=== PATIENT | female | born 1995 | race Caucasian/White ===

== ENCOUNTER 2016-05-15 10:37 | Inpatient (IN) | payer OTHER ==
[~2016-05-15] VITALS: Ht 170.2 cm; Wt 65.5 kg
[2016-05-15] MEDS ORDERED: SODIUM CHLORIDE 0.9% 500ML 500 ML IV STA (10:49)
[2016-05-15] MEDS ORDERED: ONDANSETRON INJ 2 MG/ML 2 ML VIAL IV STA (10:49)
[2016-05-15] MEDS ORDERED: SODIUM CHLORIDE 0.9% 1000ML 1,000 ML IV STA (10:49)
[2016-05-15] MEDS ORDERED: MoRPHine SULFATE 4 MG/ML 1 ML CARP\\VIAL IV PRN (11:00)
--- NOTE | 2016-05-15 11:10 | EMERGENCY ROOM VISIT NOTE ---
History Report prepared by [place]: Miriam Pittman Under the Supervision of: Dr. Shelton Esparza M.D. First contact with patient: 10:48 Chief Complaint: ABDOMINAL PAIN Stated Complaint: ABD. PAIN History of Present Illness The patient is a 20 year old female who presents to the Emergency Room with complaints of constant central abdominal pain that started about one week ago. She rates her discomfort as a 5-6/10 in severity, but she states that intermittently the pain is more severe and she rates her discomfort as an 8/10 at those times. The pain is occasionally worse with quick movements, but otherwise nothing makes the pain worse. She has not noticed any correlation between the pain and eating. The pain does not radiate into her back, but sometimes the pain radiates into the right upper quadrant of her abdomen. The patient is also experiencing intermittent nausea, but denies fevers, urinary symptoms, and diarrhea. The patient has experienced a similar pain in the past with pancreatitis. She states that her current pain feels just like her pancreatitis flare-ups do. The pain also feels like menstrual cramping, but she is not supposed to get her menstrual period anytime soon. The patient's mother states that the patient was diagnosed with chronic pancreatitis, but they never identified the cause. The patient has been hospitalized 8 times in the past for pancreatitis flare-ups and typically receives IV nutrition and pain medication. The patient's pain typically does not last longer than 5 days, so she was concerned since it has been about one week now. She states that her lipase is always elevated. The patient has received extensive testing for the pancreatitis with numerous CT scans, colonoscopies, and endoscopies. They also extensively checked her gallbladder. The patient denies any previous abdominal surgeries along with any recent abdominal injury or trauma. The patient's mother adds that the patient had a cold recently and she also states that the patient has a history of a heart murmur. Source of History: patient, parent (mother) Onset: one week ago Position: abdomen (central, intermittent RUQ) Symptom Intensity: 5-6/10 currently, 8/10 when more severe Timing: constant Modifying Factors (Worsening): movement (occasionally ) Associated Symptoms: + nausea, No diarrhea, No fevers, No urinary symptoms Review of Systems See HPI for pertinent positives & negatives. A total of 10 systems reviewed and were otherwise negative. Past Medical & Surgical Medical Problems: (1) Allergic to radiographic dye (2) Heart murmur (3) Pancreatitis Surgical Problems: (1) History of adenoidectomy (2) History of tonsillectomy Family History FH: cancer Social History Smoking Status: Never Smoker Smokeless Tobacco Use: No Alcohol Use: occasionally Occupation Status: [employer] student Current/Historical Medications Scheduled Control Pills ( Control Pills), 1 TAB PO DAILY Allergies Coded Allergies: Iodinated Diagnostic Agents (Unverified Adverse Reaction, Severe, HIVES, SWELLING,ITCH, 05/15/16) Physical Exam Vital Signs Date Time Temp Pulse Resp B/P Pulse Ox O2 Delivery O2 Flow Rate FiO2 05/15/16 10:44 36.9 88 18 137/96 98 Room Air Physical Exam GENERAL: Patient is in no acute distress. HEENT: No acute trauma, normocephalic atraumatic, mucous membranes moist, no nasal congestion, no scleral icterus. NECK: No stridor, no adenopathy, no meningismus, trachea is midline. LUNGS: Clear to auscultation bilaterally, no wheeze, no rhonchi, breath sounds equal. HEART: 2/6 systolic murmur with regular rate and rhythm. ABDOMEN: Soft, tender in epigastrium and right upper quadrant, bowel sounds positive, no hernias, no peritonitis. EXTREMITIES: No cyanosis or edema, full range of motion of all the joints without pain or difficulty, no signs for acute trauma. NEUROLOGIC: Oriented x 3, no acute motor or sensory deficits, no focal weakness. SKIN: No rash, no jaundice, no diaphoresis. Medical Decision & Procedures ER Provider Diagnostic Interpretation: X ray results and stated below per my interpretation and radiologist interpretation. Other radiology results and stated below per my review and radiologist interpretation: CHEST ONE VIEW PORTABLE IMPRESSION: No active disease in the chest. Electronically signed by: Cuco Beard M.D. 05/15/2016 11:20 AM Dictated Date/Time: 05/15/2016 11:19 AM BILIARY ULTRASOUND IMPRESSION: 1. Ultrasonographically normal gallbladder and liver. No evidence of ductal dilatation 2. Somewhat bulbous pancreatic head without evidence of focal mass Electronically signed by: Cuco Beard M.D. 05/15/2016 12:11 PM Dictated Date/Time: 05/15/2016 12:09 PM Laboratory Results 05/15/16 11:07 Red Blood Count 4.54, Mean Corpuscular Volume 83.9, Mean Corpuscular Hemoglobin 29.5, Mean Corpuscular Hemoglobin Concent 35.2, Mean Platelet Volume 9.3, Neutrophils (%) (Auto) 68.7, Lymphocytes (%) (Auto) 24.4, Monocytes (%) (Auto) 4.8, Eosinophils (%) (Auto) 1.7, Basophils (%) (Auto) 0.2, Neutrophils # (Auto) 4.14, Lymphocytes # (Auto) 1.47, Monocytes # (Auto) 0.29, Eosinophils # (Auto) 0.10, Basophils # (Auto) 0.01 05/15/16 11:07 Test 05/15/16 11:07 05/15/16 11:20 White Blood Count 6.02 K/uL (4.8-10.8) Red Blood Count 4.54 M/uL (4.2-5.4) Hemoglobin 13.4 g/dL (12.0-16.0) Hematocrit 38.1 % (37-47) Mean Corpuscular Volume 83.9 fL (80-100) Mean Corpuscular Hemoglobin 29.5 pg (25-34) Mean Corpuscular Hemoglobin Concent 35.2 g/dl (32-36) Platelet Count 272 K/uL (130-400) Mean Platelet Volume 9.3 fL (7.4-10.4) Neutrophils (%) (Auto) 68.7 % Lymphocytes (%) (Auto) 24.4 % Monocytes (%) (Auto) 4.8 % Eosinophils (%) (Auto) 1.7 % Basophils (%) (Auto) 0.2 % Neutrophils # (Auto) 4.14 K/uL (1.4-6.5) Lymphocytes # (Auto) 1.47 K/uL (1.2-3.4) Monocytes # (Auto) 0.29 K/uL (0.11-0.59) Eosinophils # (Auto) 0.10 K/uL (0-0.5) Basophils # (Auto) 0.01 K/uL (0-0.2) RDW Standard Deviation 41.3 fL (36.4-46.3) RDW Coefficient of Variation 13.6 % (11.5-14.5) Immature Granulocyte % (Auto) 0.2 % Immature Granulocyte # (Auto) 0.01 K/uL (0.00-0.02) Anion Gap 11.0 mmol/L (3-11) Est Creatinine Clear Calc Drug Dose 133.4 ml/min Estimated GFR () 148.4 Estimated GFR (Non- 128.1 BUN/Creatinine Ratio 13.5 (10-20) Calcium Level 8.7 mg/dl (8.5-10.1) Total Bilirubin 0.3 mg/dl (0.2-1) Aspartate Amino Transf (AST/SGOT) 15 U/L (15-37) Alanine Aminotransferase (ALT/SGPT) 16 U/L (12-78) Alkaline Phosphatase 41 U/L (45-117) Total Protein 7.1 gm/dl (6.4-8.2) Albumin 3.5 gm/dl (3.4-5.0) Globulin 3.6 gm/dl (2.5-4.0) Albumin/Globulin Ratio 1.0 (0.9-2) Lipase 1344 U/L (73-393) Urine Color DK YELLOW Urine Appearance CLOUDY (CLEAR) Urine pH 5.0 (4.5-7.5) Urine Specific [place] 1.028 (1.000-1.030) Urine Protein NEG (NEG) Urine Glucose (UA) NEG (NEG) Urine Ketones NEG (NEG) Urine Occult Blood TRACE (NEG) Urine Nitrite NEG (NEG) Urine Bilirubin NEG (NEG) Urine Urobilinogen NEG (NEG) Urine Leukocyte Esterase SMALL (NEG) Urine WBC (Auto) 10-30 /hpf (0-5) Urine RBC (Auto) 0-4 /hpf (0-4) Urine Hyaline Casts (Auto) 5-10 /lpf (0-5) Urine Epithelial Cells (Auto) >30 /lpf (0-5) Urine Bacteria (Auto) 1+ (NEG) Urine Test NEG (NEG) Laboratory results reviewed by me. Medications Administered Medications (Trade) Dose Ordered Sig/Kylee Route Start Time Stop Time Status Last Admin Dose Admin Sodium Chloride 500 ml @ 999 mls/hr Q31M STAT IV 05/15/16 10:49 05/15/16 11:19 DC 05/15/16 10:49 999 MLS/HR Sodium Chloride (Nss 1000ml) 1,000 ml @ 200 mls/hr Q5H STAT IV 05/15/16 10:49 05/15/16 15:48 05/15/16 11:19 200 MLS/HR Morphine Sulfate (MoRPHine SULFATE INJ) 4 mg Q15M PRN IV 05/15/16 11:00 05/29/16 10:59 05/15/16 11:20 4 MG Ondansetron HCl (Zofran Inj) 4 mg NOW STAT IV 05/15/16 10:49 05/15/16 11:00 DC 05/15/16 11:20 4 MG ED Course 1048: The patient was evaluated in room C3. A complete history and physical exam was performed. 1049: Ordered Zofran 4 mg IV, Sodium Chloride 1000 ml @ 200 mls/hr IV, Sodium Chloride 500 ml @ 999 mls/hr IV 1100: Ordered Morphine Sulfate 4 mg IV 1140: Upon reexamination the patient is resting comfortably. I discussed results and treatment plan with the patient. She verbalizes agreement and understanding. The patient will be evaluated for further management. 1146: Discussed the patient's case with Dr. Anne SMALLS. The patient will be evaluated for further management. Medical Decision Differential diagnoses considered include gastritis, pancreatitis, ruptured bowel, biliary colic, viral illness, musculoskeletal pain, , ovarian cyst, appendicitis. There is no leukocytosis or concerning anemia. No significant electrolyte abnormality, kidney failure or hepatitis. Pancreatic enzyme testing is elevated. Urinalysis shows contamination, no infection. testing is negative. Chest film shows no pneumonia or free air. Gallbladder ultrasound shows a healthy gallbladder, there was no acute cholecystitis or gallstones. Patient received IV saline, IV morphine and IV Zofran. She was made nothing by mouth. She seems comfortable. The patient is a history of pancreatitis and this seems to be the issue with her today as well. Admission/observation is warranted. I did speak to the patient and with case management. The on-call hospitalist was consulted. Consults Time Called: 1142 Consulting Physician: Dr. Anne SMALLS Returned Call: [phone] Discussed the patient's case with Dr. Anne SMALLS. The patient will be evaluated for further management. Impression Primary Impression: Acute pancreatitis Scribe Attestation The scribe's documentation has been prepared under my direction and personally reviewed by me in its entirety. I confirm that the note above accurately reflects all work, treatment, procedures, and medical decision making performed by me. Departure Information Dispostion Being Evaluated By Hospitalist Referrals No Doctor, Assigned (PCP) Patient Instructions [facility] Problem Qualifiers Primary Impression: Acute pancreatitis
[2016-05-15 11:14] LABS: BASO % 0.2 %; BASO ABS # 0.01 K/uL (0-0.2); COMPLETE YES; EOS % 1.7 %; HEMATOCRIT 38.1 % (37-47); IG% 0.2 %; LYMPH % 24.4 %; LYMPH ABS # 1.47 K/uL (1.2-3.4); MEAN CELL VOLUME 83.9 fL (80-100); MEAN CORPUSCULAR HEMOGLOBIN 29.5 pg (25-34); MEAN CORPUSCULAR HGB CONC 35.2 g/dl (32-36); MEAN PLATELET VOLUME 9.3 fL (7.4-10.4); MONO % 4.8 %; NEUT % 68.7 %; PLATELET COUNT 272 K/uL (130-400); RED BLOOD COUNT 4.54 M/uL (4.2-5.4); WHITE BLOOD COUNT 6.02 K/uL (4.8-10.8)
--- NOTE | 2016-05-15 11:22 | DIAGNOSTIC IMAGING REPORT ---
CHEST ONE VIEW PORTABLE CLINICAL HISTORY: Epigastric chest pain COMPARISON STUDY: No previous studies for comparison. FINDINGS: The cardiac and mediastinal contours are normal. There is no evidence of focal pulmonary consolidation. There is no evidence of failure. No pleural effusions are visualized.[ No free air is visualized. IMPRESSION: No active disease in the chest. Electronically signed by: Cuco Beard M.D. 05/15/2016 11:20 AM Dictated Date/Time: 05/15/2016 11:19 AM
[2016-05-15 11:32] LABS: BUN/CREATININE RATIO 13.5 (10-20); CALCIUM 8.7 mg/dl (8.5-10.1); CREATININE 0.66 mg/dl (0.60-1.20); POTASSIUM 3.7 mmol/L (3.5-5.1)
[2016-05-15] MEDS ORDERED: BCPILLS PO (11:32)
[2016-05-15 11:43] LABS: URINE APPEARANCE CLOUDY (CLEAR); URINE BILIRUBIN NEG (NEG); URINE COLOR DK YELLOW; URINE EPITHELIAL CELL AUTO >30 /lpf (0-5); URINE NITRITE NEG (NEG); URINE SPECIFIC GRAVITY 1.028 (1.000-1.030); UROBILINOGEN NEG (NEG); ZZUR CULT IF INDIC CLEAN CATCH YES
[2016-05-15 11:49] LABS: MANUAL MICROSCOPIC REQUIRED? NO; REVIEW REQ? NO
--- NOTE | 2016-05-15 12:13 | DIAGNOSTIC IMAGING REPORT ---
BILIARY ULTRASOUND CLINICAL HISTORY: Epigastric and right upper quadrant abdominal pain COMPARISON STUDY: No previous studies for comparison. FINDINGS: The gallbladder appears sonographically normal. The liver appears sonographically normal. There is no ductal dilatation. Common bile duct measures 4 mm. Pancreatic head is somewhat bulbous. No focal masses are visualized. IMPRESSION: 1. Ultrasonographically normal gallbladder and liver. No evidence of ductal dilatation 2. Somewhat bulbous pancreatic head without evidence of focal mass Electronically signed by: Cuco Beard M.D. 05/15/2016 12:11 PM Dictated Date/Time: 05/15/2016 12:09 PM
[2016-05-15] MEDS ORDERED: ONDANSETRON INJ 2 MG/ML 2 ML VIAL IV PRN (12:45)
[2016-05-15] MEDS ORDERED: MoRPHine SULFATE 2 MG/ML CARP IV PRN (12:45)
--- NOTE | 2016-05-15 13:32 | History and Physical ---
History & Physical Date & Time of Service: May 15, 2016 at 13:04 Chief Complaint: Abd. Pain Primary Care Physician: No Doctor, Assigned History of Present Illness Source: patient, parent (mother at bedside), hospital records This is a 20 y/o female with a history of chronic pancreatitis and no other significant past medical history who presented to the ED on 05/15 with abdominal pain x 1 week. The pain is located in the epigastric region and is a constant cramping sensation. The pain is typically about a 6/10 in severity, although the pain does occasionally increase in intensity to a 9/10 and become sharp and stabbing in character. The patient reports nausea and palpitations when the pain is at its most severe. The pain intermittently radiates to the RUQ. The patient has not noticed anything in particular that aggravates or alleviates the pain and denies any direct association with eating. She also admits to a slight dry, non-productive cough and states that she has been getting over a cold. The patient does have a history of chronic pancreatitis and states that she has had about 8 previous acute attacks, the first being when she was 9 years old. She has received extensive work up through her e learning coordinator, Dr. Celestine Pearson, who specializes in the pancreas. This work up has all come back normal and they have not been able to determine the cause. This is her first flare up in 2 years. The patient states that she does chronically have an elevated lipase, somewhere around 350-500 at baseline. The patient denies fevers, chills, sweats, chest pain, claudication, wheezing, shortness of breath , vomiting, diarrhea, constipation, dysuria, hematuria, urinary frequency, paralysis, weakness, numbness and tingling. 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 (2) Heart murmur Status: Chronic (3) Pancreatitis Status: Chronic Family History Breast cancer Hypertension Myocardial infarction Ovarian cancer Stroke Thyroid cancer Social History Smoking Status: Never Smoker Smokeless Tobacco Use: No Alcohol Use: socially Drug Use: none Marital Status: single Housing status: lives alone (lives on [facility]) Occupational Status: [employer] student Allergies Coded Allergies: Iodinated Diagnostic Agents (Unverified Adverse Reaction, Severe, HIVES, SWELLING,ITCH, 05/15/16) Home Medications Scheduled Control Pills ( Control Pills), 1 TAB PO DAILY Review of Systems Constitutional: No chills, No fever, No sweats Eyes: No diplopia, No eye pain, No worsening of vision ENT: No hearing loss, No sore throat, No trouble swallowing Respiratory: + cough (non-productive, recovering from cold), No shortness of breath, No sputum, No wheezing Cardiovascular: + palpitations (occasionally with severe pain), No chest pain, No claudication Abdomen: + nausea (intermittent with severe pain), + pain (epigastric, RUQ), No constipation, No diarrhea, No vomiting Musculoskeletal: No calf pain, No joint pain, No muscle pain Genitourinary - Female: No dysuria, No hematuria, No urinary frequency Neurologic: No numbness/tingling, No paralysis, No weakness Integumentary: No color change, No itch, No rash Physical Exam Vital Signs Date Time Temp Pulse Resp B/P Pulse Ox O2 Delivery O2 Flow Rate FiO2 05/15/16 12:45 78 18 133/70 98 Room Air 05/15/16 10:44 36.9 88 18 137/96 98 Room Air General Appearance: WD/WN, no apparent distress Head: normocephalic, atraumatic Eyes: normal inspection, PERRL, EOMI ENT: normal ENT inspection, hearing grossly normal, pharynx normal Neck: supple, no JVD, trachea midline Respiratory/Chest: lungs clear, normal breath sounds, no respiratory distress Cardiovascular: regular rate, rhythm, no gallop, + systolic murmur (h/o murmur since childhood) Abdomen/GI: normal bowel sounds, soft, no organomegaly, + tenderness ( epigastric area and RUQ TTP without guarding or rebound tenderness) Extremities/Musculoskelatal: normal inspection, no calf tenderness, no pedal edema Neurologic/Psych: alert, normal mood/affect, oriented x 3 Skin: normal color, warm/dry, no rash Diagnostics Laboratory Results Results Past 24 Hours Test 05/15/16 11:07 05/15/16 11:20 Range/Units White Blood Count 6.02 4.8-10.8 K/uL Red Blood Count 4.54 4.2-5.4 M/uL Hemoglobin 13.4 12.0-16.0 g/dL Hematocrit 38.1 37-47 % Mean Corpuscular Volume 83.9 80-100 fL Mean Corpuscular Hemoglobin 29.5 25-34 pg Mean Corpuscular Hemoglobin Concent 35.2 32-36 g/dl Platelet Count 272 130-400 K/uL Mean Platelet Volume 9.3 7.4-10.4 fL Neutrophils (%) (Auto) 68.7 % Lymphocytes (%) (Auto) 24.4 % Monocytes (%) (Auto) 4.8 % Eosinophils (%) (Auto) 1.7 % Basophils (%) (Auto) 0.2 % Neutrophils # (Auto) 4.14 1.4-6.5 K/uL Lymphocytes # (Auto) 1.47 1.2-3.4 K/uL Monocytes # (Auto) 0.29 0.11-0.59 K/uL Eosinophils # (Auto) 0.10 0-0.5 K/uL Basophils # (Auto) 0.01 0-0.2 K/uL RDW Standard Deviation 41.3 36.4-46.3 fL RDW Coefficient of Variation 13.6 11.5-14.5 % Immature Granulocyte % (Auto) 0.2 % Immature Granulocyte # (Auto) 0.01 0.00-0.02 K/uL Sodium Level 141 136-145 mmol/L Potassium Level 3.7 3.5-5.1 mmol/L Chloride Level 107 98-107 mmol/L Carbon Dioxide Level 23 21-32 mmol/L Anion Gap 11.0 3-11 mmol/L Blood Urea Nitrogen 9 7-18 mg/dl Creatinine 0.66 0.60-1.20 mg/dl Est Creatinine Clear Calc Drug Dose 133.4 ml/min Estimated GFR () 148.4 Estimated GFR (Non- 128.1 BUN/Creatinine Ratio 13.5 10-20 Random Glucose 91 70-99 mg/dl Calcium Level 8.7 8.5-10.1 mg/dl Total Bilirubin 0.3 0.2-1 mg/dl Aspartate Amino Transf (AST/SGOT) 15 15-37 U/L Alanine Aminotransferase (ALT/SGPT) 16 12-78 U/L Alkaline Phosphatase 41 45-117 U/L Total Protein 7.1 6.4-8.2 gm/dl Albumin 3.5 3.4-5.0 gm/dl Globulin 3.6 2.5-4.0 gm/dl Albumin/Globulin Ratio 1.0 0.9-2 Lipase 1344 73-393 U/L Urine Color DK YELLOW Urine Appearance CLOUDY CLEAR Urine pH 5.0 4.5-7.5 Urine Specific [place] 1.028 1.000-1.030 Urine Protein NEG NEG Urine Glucose (UA) NEG NEG Urine Ketones NEG NEG Urine Occult Blood TRACE NEG Urine Nitrite NEG NEG Urine Bilirubin NEG NEG Urine Urobilinogen NEG NEG Urine Leukocyte Esterase SMALL NEG Urine WBC (Auto) 10-30 0-5 /hpf Urine RBC (Auto) 0-4 0-4 /hpf Urine Hyaline Casts (Auto) 5-10 0-5 /lpf Urine Epithelial Cells (Auto) >30 0-5 /lpf Urine Bacteria (Auto) 1+ NEG Urine Test NEG NEG Microbiology Results 05/15/16 Urine Culture, Received Pending Diagnostic Radiology Reviewed the following studies and agree with interpretation as follows: Patient Name: ALESSANDRO SUÁREZ Unit Number: [id number] Dictated: 05/15/161118 Transcribed: 05/15/161118 ARG Printed Date/Time: [~ rep prt dt]/[~ rep prt tm] [~ rep ct labl] - [~ rep ct ivnm] [facility] [place] [address] Dictated: 05/15/161118 Transcribed: 05/15/161118 ARG Printed Date/Time: [~ rep prt dt]/[~ rep prt tm] [~ rep ct labl] - [~ rep ct ivnm] Patient: ALESSANDRO SUÁREZ Address1: [address] [place] [address] Rec: [id number] Address2: Acct ID: [id number] [facility]: [place] [address] Date: 1995 Sex: F Room/Bed: Ref Phy: No Doctor, Assigned SC: RISA Att Phy: Report #: [id number] Fabiana Phy: No Doctor, Assigned Test: CXR1P Admit Phy: Wind Turbine Controls Engineer: JERMAIN Interpreting Phy: Cuco Beard M.D. Diagnosis: ABD. PAIN Ordering Phy: Shelton Esparza M.D. Service Date: 05/15/16 Admit Date: 05/15/16 MNE: [id number] CONF: DICTATED BY: Cuco Beard M.D.]] CC: Shelton Esparza M.D. No Doctor, Assigned Endcc: [~ rep ct add3]] CHEST ONE VIEW PORTABLE CLINICAL HISTORY: Epigastric chest pain COMPARISON STUDY: No previous studies for comparison. FINDINGS: The cardiac and mediastinal contours are normal. There is no evidence of focal pulmonary consolidation. There is no evidence of failure. No pleural effusions are visualized.[ No free air is visualized. IMPRESSION: No active disease in the chest. Electronically signed by: Cuco Beard M.D. 05/15/2016 11:20 AM Dictated Date/Time: 05/15/2016 11:19 AM The status of this report is Signed. Draft = Not yet reviewed or approved by Radiologist. Signed = Reviewed and approved by Radiologist. <AttendingPhy></AttendingPhy> <FamilyPhy>No Doctor, Assigned</FamilyPhy> < PrimaryPhy>No Doctor, Assigned</PrimaryPhy> <UnitNumber>[id number]</UnitNumber> <VisitNumber>[id number]</VisitNumber> <PatientName>ALESSANDRO SUÁREZ</ PatientName> <DateOfBirth>1995</DateOfBirth> <Location>C.EDC</Location> < ServiceDate>05/15/16</ServiceDate> <MNE>ESINDI</MNE> <OrderingPhy>Shelton Esparza M.D.</OrderingPhy> <OrderingPhyMNE>f rep ord dr medrano</OrderingPhyMNE> < DictatingPhyMNE>f rep dict dr medrano</DictatingPhyMNE> <CCListMNE>f rep ct mne</ CCListMNE> <AdmittingPhyMNE>f pt admit dr medrano</AdmittingPhyMNE> <AttendingPhyMNE >f pt attend dr medrano</AttendingPhyMNE> <ConsultingPhyMNE>f pt consult dr medrano</ConsultingPhyMNE> <FamilyPhyMNE>f pt fam dr medrano</FamilyPhyMNE> <OtherPhyMNE>f pt other dr medrano</OtherPhyMNE> < PrimaryPhyMNE>f pt prim care dr medrano</PrimaryPhyMNE> <ReferringPhyMNE>f pt referring dr medrano</ReferringPhyMNE> Patient Name: ALESSANDRO SUÁREZ Unit Number: [id number] Dictated: 05/15/161208 Transcribed: 05/15/161208 ARG Printed Date/Time: [~ rep prt dt]/[~ rep prt tm] [~ rep ct labl] - [~ rep ct ivnm] [facility] [place] [address] Dictated: 05/15/161208 Transcribed: 05/15/161208 ARG Printed Date/Time: [~ rep prt dt]/[~ rep prt tm] [~ rep ct labl] - [~ rep ct ivnm] Patient: ALESSANDRO SUÁREZ Address1: [address] [place] [address] Rec: [id number] Address2: Acct ID: [id number] [facility] Zip: [place] [address] Date: 1995 Sex: F Room/Bed: Ref Phy: No Doctor, Assigned SC: RISA Att Phy: Report #: [id number] Fabiana Phy: No Doctor, Assigned Test: GB Admit Phy: Wind Turbine Controls Engineer: BEBE Interpreting Phy: Cuco Beard M.D. Diagnosis: ABD. PAIN Ordering Phy: Shelton Esparza M.D. Service Date: 05/15/16 Admit Date: 05/15/16 MNE: [id number] CONF: DICTATED BY: Cuco Beard M.D.]] CC: Shelton Esparza M.D. No Doctor, Assigned Endcc: [~ rep ct add3]] BILIARY ULTRASOUND CLINICAL HISTORY: Epigastric and right upper quadrant abdominal pain COMPARISON STUDY: No previous studies for comparison. FINDINGS: The gallbladder appears sonographically normal. The liver appears sonographically normal. There is no ductal dilatation. Common bile duct measures 4 mm. Pancreatic head is somewhat bulbous. No focal masses are visualized. IMPRESSION: 1. Ultrasonographically normal gallbladder and liver. No evidence of ductal dilatation 2. Somewhat bulbous pancreatic head without evidence of focal mass Electronically signed by: Cuco Beard M.D. 05/15/2016 12:11 PM Dictated Date/Time: 05/15/2016 12:09 PM The status of this report is Signed. Draft = Not yet reviewed or approved by Radiologist. Signed = Reviewed and approved by Radiologist. <AttendingPhy></AttendingPhy> <FamilyPhy>No Doctor, Assigned</FamilyPhy> < PrimaryPhy>No Doctor, Assigned</PrimaryPhy> <UnitNumber>[id number]</UnitNumber> <VisitNumber>[id number]</VisitNumber> <PatientName>ALESSANDRO SUÁREZ</ PatientName> <DateOfBirth>1995</DateOfBirth> <Location>C.EDC</Location> < ServiceDate>05/15/16</ServiceDate> <MNE>ESINDI</MNE> <OrderingPhy>Shelton Esparza M.D.</OrderingPhy> <OrderingPhyMNE>f rep ord dr medrano</OrderingPhyMNE> < DictatingPhyMNE>f rep dict dr medrano</DictatingPhyMNE> <CCListMNE>f rep ct mitchell</ CCListMNE> <AdmittingPhyMNE>f pt admit dr medrano</AdmittingPhyMNE> <AttendingPhyMNE >f pt attend dr medrano</AttendingPhyMNE> <ConsultingPhyMNE>f pt consult dr medrano</ConsultingPhyMNE> <FamilyPhyMNE>f pt fam dr medrano</FamilyPhyMNE> <OtherPhyMNE>f pt other dr medrano</OtherPhyMNE> < PrimaryPhyMNE>f pt prim care dr medrano</PrimaryPhyMNE> <ReferringPhyMNE>f pt referring dr medrano</ReferringPhyMNE> Impression Assessment and Plan 20 y/o female with a history of chronic pancreatitis and no other significant past medical history who presented to the ED on 05/15 with abdominal pain x 1 week. Epigastric pain that sometimes radiates to RUQ. Crampy, 6/10 pain that occasionally becomes sharp and 9/10. Intermittent nausea and palpitations when pain is severe. H/o idiopathic chronic pancreatitis since she was 9 y/o, extensive work up with pancreas specialist Dr. Celestine Pearson at [facility]. Pt. afebrile, VSS. CXR no acute disease. RUQ U/S shows normal gallbladder and liver, no ductal dilation, somewhat bulbous pancreatic head. Lipase elevated at 1344, pt states lipase around 350-500 at baseline. UA borderline, likely skin foreign contamination. Labs are otherwise WNL. Acute on chronic pancreatitis--[facility] -Admit to med/surg -NPO -Lactated Ringer's with 20 mEq KCl at 200 cc/hr -Morphine 2 mg IV q3h prn pain -GI prophylaxis with Protonix 40 mg IV qd -Zofran 4 mg IV q6h prn nausea UA with trace blood, small amt leuks, 1+ bacteria--asymptomatic -High epithelial cells, likely just contamination -Urine culture pending from ED -No treatment indicated DVT prophylaxis -Encourage ambulation -SCDs Code Status -Level I, FULL RESUSCITATION STATUS Level of Care Med/Surg Resuscitation Status FULL RESUSCITATION VTE Prophylaxis VTE Risk Assessment Done? Y/N: Yes Risk Level: Low Given or contraindicated: SCD's Note Attending Admission Note & Attestation: Pt seen/examined, chart reviewed, and care plan d/w CYDNEY Caputo. I agree w/ the bernard components of her admission documentation. 20yo female with recurrent pancreatitis since the age of 9. First episode was likely due to trauma as she developed the pancreatitis after an injury involving playground equipment/monkey bars. Her last episode of pancreatitis was about 2 years ago. She recalls having had multiple CT scans, MRIs, and what sounds like ERCP. She has been told that her biliary tract/pancreas "are normal." She denies chronic diarrhea following meals. Denies chronic abdominal pain. no h/o T1DM. Denies etoh use. no h/o elevated triglycerides. follows with [facility] for her recurrent pancreatitis. PMH, PSH, allergies, meds, sochx, famhx, ros - reviewed VSS, afebrile gen - a/o x 3, nontoxic mouth - MMM eyes - no icterus heart - RRR, s1, s2, 1/6 DAVID LSB lungs - CTA b/l abd - soft, no HSM, mild epigastric tenderness, BS+ ext - no edema labs - lipase 1344 CBC nl BMP nl urine HCG neg RUQ u/s - "bulbous" pancreatic head A/P: Acute pancreatitis in the setting of recurrent pancreatitis since the age of 9. First episode at age 9 was 2nd to trauma. Exact etiology of recurrent pancreatitis? Does she have an anatomical variant as the root cause? No evidence of etoh abuse, stones, hypercalcemia, past h/o high triglycerides, viral process, etc. plan - LR at 200cc/hr NPO pain meds anti-emetics PPI IV lipase/bmp in AM obtain records from [facility] strongly consider MRCP to delineate her anatomy, especially the pancreatic duct and pancreatic head need for endoscopic u/s?? should follow with local GI group Lisa DUGGAN MD
[2016-05-15 14:28] VITALS: O2SAT 98
[2016-05-15 15:00] VITALS: BP 134/78; PULSE 71; TEMP 36.8; O2SAT 99
[2016-05-15] MEDS: POTASSIUM CHLORIDE INJ 20 MEQ in LACTATED RINGER'S 1000ML 1,000 ML IV SCH ×2 (15:29→20:32)
[2016-05-15 16:19] VITALS: Ht 170.2 cm; Wt 65.5 kg
[2016-05-15 22:55] VITALS: BP 115/65; PULSE 77; TEMP 36.8; O2SAT 98
[2016-05-16] MEDS: POTASSIUM CHLORIDE INJ 20 MEQ in LACTATED RINGER'S 1000ML 1,000 ML IV SCH ×3 (01:08→10:23)
[2016-05-16 05:29] LABS: HEMATOCRIT 36.9 % (37-47); MEAN CORPUSCULAR HEMOGLOBIN 29.5 pg (25-34); MEAN CORPUSCULAR HGB CONC 34.7 g/dl (32-36); MEAN PLATELET VOLUME 9.7 fL (7.4-10.4); PLATELET COUNT 239 K/uL (130-400); RED BLOOD COUNT 4.34 M/uL (4.2-5.4)
[2016-05-16 05:35] LABS: PROTHROMBIN TIME (PATIENT) 10.7 SECONDS (9.0-12.0)
[2016-05-16 06:09] LABS: BLOOD UREA NITROGEN 7 mg/dl (7-18); BUN/CREATININE RATIO 13.3 (10-20); CALCIUM 8.5 mg/dl (8.5-10.1); CARBON DIOXIDE 21 mmol/L (21-32); CHLORIDE 106 mmol/L (98-107); CREATININE 0.52 mg/dl (0.60-1.20); GLUCOSE 61 mg/dl (70-99); POTASSIUM 4.1 mmol/L (3.5-5.1); SODIUM 139 mmol/L (136-145)
[2016-05-16 07:00] VITALS: BP 137/66; PULSE 81; TEMP 36.6; O2SAT 97
--- NOTE | 2016-05-16 08:42 | Progress Note ---
Subjective Date of Service: May 16, 2016. 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 (3) Heart murmur Status: Chronic (4) Pancreatitis Status: Chronic Objective Vital Signs Date Time Temp Pulse Resp B/P Pulse Ox O2 Delivery O2 Flow Rate FiO2 05/16/16 07:00 36.6 81 20 137/66 97 Room Air 05/15/16 22:55 36.8 77 16 115/65 98 Room Air 05/15/16 19:56 Room Air 05/15/16 16:19 Room Air 05/15/16 15:00 36.8 71 16 134/78 99 Room Air 05/15/16 15:00 Room Air 05/15/16 14:28 64 18 118/68 98 Room Air 05/15/16 12:45 78 18 133/70 98 Room Air 05/15/16 10:44 36.9 88 18 137/96 98 Room Air Laboratory Results Last 24 Hours Test 05/15/16 11:07 05/15/16 11:20 05/16/16 05:00 White Blood Count 6.02 K/uL 7.10 K/uL Red Blood Count 4.54 M/uL 4.34 M/uL Hemoglobin 13.4 g/dL 12.8 g/dL Hematocrit 38.1 % 36.9 % Mean Corpuscular Volume 83.9 fL 85.0 fL Mean Corpuscular Hemoglobin 29.5 pg 29.5 pg Mean Corpuscular Hemoglobin Concent 35.2 g/dl 34.7 g/dl Platelet Count 272 K/uL 239 K/uL Mean Platelet Volume 9.3 fL 9.7 fL Neutrophils (%) (Auto) 68.7 % Lymphocytes (%) (Auto) 24.4 % Monocytes (%) (Auto) 4.8 % Eosinophils (%) (Auto) 1.7 % Basophils (%) (Auto) 0.2 % Neutrophils # (Auto) 4.14 K/uL Lymphocytes # (Auto) 1.47 K/uL Monocytes # (Auto) 0.29 K/uL Eosinophils # (Auto) 0.10 K/uL Basophils # (Auto) 0.01 K/uL RDW Standard Deviation 41.3 fL 42.3 fL RDW Coefficient of Variation 13.6 % 13.5 % Immature Granulocyte % (Auto) 0.2 % Immature Granulocyte # (Auto) 0.01 K/uL Sodium Level 141 mmol/L 139 mmol/L Potassium Level 3.7 mmol/L 4.1 mmol/L Chloride Level 107 mmol/L 106 mmol/L Carbon Dioxide Level 23 mmol/L 21 mmol/L Anion Gap 11.0 mmol/L 12.0 mmol/L Blood Urea Nitrogen 9 mg/dl 7 mg/dl Creatinine 0.66 mg/dl 0.52 mg/dl Est Creatinine Clear Calc Drug Dose 133.4 ml/min 169.3 ml/min Estimated GFR () 148.4 > 150.0 Estimated GFR (Non- 128.1 138.5 BUN/Creatinine Ratio 13.5 13.3 Random Glucose 91 mg/dl 61 mg/dl Calcium Level 8.7 mg/dl 8.5 mg/dl Total Bilirubin 0.3 mg/dl Aspartate Amino Transf (AST/SGOT) 15 U/L Alanine Aminotransferase (ALT/SGPT) 16 U/L Alkaline Phosphatase 41 U/L Total Protein 7.1 gm/dl Albumin 3.5 gm/dl Globulin 3.6 gm/dl Albumin/Globulin Ratio 1.0 Lipase 1344 U/L 912 U/L Urine Color DK YELLOW Urine Appearance CLOUDY Urine pH 5.0 Urine Specific [place] 1.028 Urine Protein NEG Urine Glucose (UA) NEG Urine Ketones NEG Urine Occult Blood TRACE Urine Nitrite NEG Urine Bilirubin NEG Urine Urobilinogen NEG Urine Leukocyte Esterase SMALL Urine WBC (Auto) 10-30 /hpf Urine RBC (Auto) 0-4 /hpf Urine Hyaline Casts (Auto) 5-10 /lpf Urine Epithelial Cells (Auto) >30 /lpf Urine Bacteria (Auto) 1+ Urine Test NEG Prothrombin Time 10.7 SECONDS Prothromb Time International Ratio 1.0 Assessment and Plan 20 y/o female with a history of chronic pancreatitis and no other significant past medical history who presented to the ED on 05/15 with abdominal pain x 1 week and elevated [id number] enzymes. acute pancreatitis with H/o idiopathic chronic pancreatitis since she was 9 y/o , extensive work up with pancreas specialist Dr. Celestine Pearson at [facility].. RUQ U/S shows normal gallbladder and liver, no ductal dilation, somewhat bulbous pancreatic head. Lipase elevated at 1344, pt states lipase around 350-500 at baseline. pain control and hydration UA with trace blood,Urine culture pending from ED DVT prophylaxis-Encourage ambulation -SCDs Code Status -Level I, FULL RESUSCITATION STATUS
[2016-05-16] MEDS ORDERED: ACETAMINOPHEN 500 MG TAB PO PRN (08:45)
[2016-05-16] MEDS ORDERED: ENOXAPARIN 40 MG/0.4 ML SYR SQ SCH (09:00)
[2016-05-16] MEDS ORDERED: PANTOprazole INJ 40 MG in SYRINGE 0 ML IV SCH (11:00)
[2016-05-16] MEDS ORDERED: RXC5 PO (13:20)
--- NOTE | 2016-05-16 13:20 | Discharge Instructions ---
Discharge Instructions Admission Reason for Admission: Pancreatitis Discharge Discharge Diagnosis / Problem: pancreatitis Discharge Goals Goal(s): Diagnostic testing, Therapeutic intervention Activity Recommendations Activity Limitations: resume your previous activity . Current Hospital Diet Patient's current hospital diet: Regular Diet Discharge Diet Recommended Diet: Regular Diet Pending Studies Studies pending at discharge: no Medical Emergencies . Who to Call and When: Medical Emergencies: If at any time you feel your situation is an emergency, please call 911 immediately. . Non-Emergent Contact Non-Emergency issues call your: Retail Associate Manager Bilingual . . "Provider Documentation" section prepared by Christofer Jaquez. VTE Core Measure Inpt VTE Proph given/why not?: SCD's
[2016-05-16 13:43] VITALS: BP 137/66; PULSE 81; TEMP 36.6; O2SAT 97
--- NOTE | 2016-05-16 14:19 | Medical Student: [facility] ---
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 (2) Heart murmur Status: Chronic (3) Pancreatitis Status: Chronic Medications: Reported Home Medications Medications Dose Route/Sig Max Daily Dose Days Date Category Oxycodone HCl 5 Mg Tab 5-10 Mg PO Q6H 05/16/16 Rx Control Pills (Miscellaneous) Tab 1 Tab PO DAILY 05/15/16 Reported Discharge Exam Review of Systems: Constitutional: No chills, No fever Respiratory: No cough, No shortness of breath, No wheezing Cardiovascular: No chest pain, No edema Abdomen: + nausea, + pain, No constipation, No diarrhea, No vomiting Hospital Course 20 yo female w/hx of idiopathic chronic pancreatitis who presented to the ED with abdominal pain and nausea, consistent with an exacerbation of chronic pancreatitis. She was kept NPO and given IV fluids and acetaminophen for pain control. pain is improving, initially 8/10 at worst and now about a 4/10. After initiating her diet she had no increased pain. She was given a prescription for oxycodone for discharge for pain control with future exacerbations. Total Time Spent: Greater than 30 minutes This includes examination of the patient, discharge planning, medication reconciliation, and communication with other providers. Discharge Instructions Please refer to the electronic Patient Visit Report (Discharge Instructions) for additional information. 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
--- NOTE | 2016-05-16 18:04 | Discharge Summary ---
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: Chronic (2) Heart murmur Status: Chronic (3) Pancreatitis Status: Chronic Medication Reconciliation New Medications: Oxycodone HCl (Oxycodone HCl) 5 Mg Tab 5-10 MG PO Q6H, #30 Continued Medications: Control Pills ( Control Pills) Tab 1 TAB PO DAILY, TAB Discharge Exam Review of Systems: Constitutional: No chills, No fever, No weakness Respiratory: No cough, No dyspnea on exertion Cardiovascular: No edema, No orthopnea Abdomen: + pain (mild), No nausea, No vomiting Musculoskeletal: No joint pain, No muscle pain, No swelling Physical Exam: General Appearance: WD/WN, no apparent distress Neck: supple, no JVD Respiratory/Chest: chest non-tender, lungs clear, normal breath sounds Cardiovascular: regular rate, rhythm, no murmur Abdomen / GI: normal bowel sounds, non tender, soft Extremities: no pedal edema, normal range of motion Neurologic/Psychiatric: alert, oriented x 3 Hospital Course 20 y/o female with a history of chronic pancreatitis and no other significant past medical history who presented to the ED on 05/15 with abdominal pain x 1 week and elevated [id number] enzymes. acute pancreatitis with H/o idiopathic chronic pancreatitis since she was 9 y/o , extensive work up with pancreas specialist Dr. Celestine Pearson at [facility].. RUQ U/S shows normal gallbladder and liver, no ductal dilation, somewhat bulbous pancreatic head. Lipase and pain have improved, pt states lipase around 350-500 at baseline. Pt and mother request discharge if able to tolerate po, pt did and will follow up with [facility] GI medicine Urine culture pending at discharge Total Time Spent: Greater than 30 minutes This includes examination of the patient, discharge planning, medication reconciliation, and communication with other providers. Discharge Instructions Please refer to the electronic Patient Visit Report (Discharge Instructions) for additional information. Additional Copies To Vikas Nascimento M.D.
== END 2016-05-16 14:51 | disposition home or self-care (01) | DRG 440 ==
LOC: ENRESERVTM → ENRESERVDT → C.EDB 10:39 → C.3E 13:01
PROVIDERS: ADMIT Internal Medicine; ATTEND Internal Medicine
DX: K85.90 Acute pancreatitis without necrosis or infection, unspecified (principal); K86.1 Other chronic pancreatitis; R82.99 Other abnormal findings in urine; R31.9 Hematuria, unspecified; R01.1 Cardiac murmur, unspecified; Z79.3 Long term (current) use of hormonal contraceptives

== ENCOUNTER → 2016-06-20 | Outpatient (CLI) | payer OTHER ==
[~2016-06-20] MED LIST: BCPILLS PO; RXC5 PO
--- NOTE | 2016-06-20 11:40 | DIAGNOSTIC IMAGING REPORT ---
MAGNETIC RESONANCE CHOLANGIOPANCREATOGRAPHY CLINICAL HISTORY: PANCREATITIS COMPARISON STUDY: Gallbladder ultrasound dated 05/15/2016 FINDINGS: A breath-hold MRCP study was performed. Similar to the prior ultrasound study, the pancreatic head appears bulbous but appears of similar signal intensity to the remainder of the gland. No gallstones are visualized. There is no biliary ductal dilatation. Pancreatic duct is of normal caliber. No filling defects are visualized. IMPRESSION: 1. No evidence of biliary or pancreatic ductal dilatation 2. No gallstones identified. No ductal filling defects identified. 3. Somewhat bulbous pancreatic head, similar in signal intensity to the remainder of the gland Electronically signed by: Cuco Beard M.D. 06/20/2016 11:39 AM Dictated Date/Time: 06/20/2016 11:35 AM
== END | disposition home or self-care (01) ==
LOC: C.MRI 11:03
PROVIDERS: ATTEND Internal Medicine Gastroenterology
DX: K85.90 Acute pancreatitis without necrosis or infection, unspecified (principal)

== ENCOUNTER 2017-07-23 14:41 | Emergency (ER) | payer OTHER ==
[~2017-07-23] VITALS: Ht 170.2 cm; Wt 66.1 kg
[2017-07-23 14:44] VITALS: TEMP 36.7; Ht 170.2 cm; Wt 66.1 kg
[2017-07-23] MEDS ORDERED: SODIUM CHLORIDE 0.9% 1000ML 1,000 ML IV STA (14:59)
[2017-07-23] MEDS ORDERED: ONDANSETRON INJ 2 MG/ML 2 ML VIAL IV STA (14:59)
[2017-07-23 15:25] LABS: BASO % 0.2 %; BASO ABS # 0.01 K/uL (0-0.2); EOS % 2.1 %; EOS ABS # 0.13 K/uL (0-0.5); HEMATOCRIT 40.4 % (37-47); IG# 0.01 K/uL (0.00-0.02); LYMPH ABS # 1.97 K/uL (1.2-3.4); MEAN CELL VOLUME 85.4 fL (80-100); MEAN CORPUSCULAR HEMOGLOBIN 29.6 pg (25-34); MEAN CORPUSCULAR HGB CONC 34.7 g/dl (32-36); MEAN PLATELET VOLUME 9.6 fL (7.4-10.4); MONO % 6.2 %; MONO ABS # 0.38 K/uL (0.11-0.59); NEUT % 59.3 %; NEUT ABS # 3.66 K/uL (1.4-6.5); PLATELET COUNT 293 K/uL (130-400); RED CELL DISTRIBUTION WIDTH CV 13.3 % (11.5-14.5); RED CELL DISTRIBUTION WIDTH SD 41.8 fL (36.4-46.3); WHITE BLOOD COUNT 6.16 K/uL (4.8-10.8)
--- NOTE | 2017-07-23 15:27 | EMERGENCY ROOM VISIT NOTE ---
History First contact with patient: 14:47 Chief Complaint: ABDOMINAL PAIN Stated Complaint: STOMACH PAIN, NAUSEA,HX OF PANCREATITIS Nursing Triage Summary: Patient reports: "I have reoccuring acute pancreatitis and the pain is more on the right side. I was told to come here by my pcp." PT reports nausea. History of Present Illness The patient is a 21 year old female who presents to the Emergency Room with complaints of epigastric and right upper quadrant abdominal pain. The patient reports that she has a history of acute recurrent pancreatitis. She states that she had a trauma at age 9 and has had recurrent pancreatitis since then. She states that her baseline lipase is 300-500. She denies any recent alcohol use. The patient reports that her pain began yesterday on her way home from a swimming trip. She states the pain is in the upper and right side of the abdomen. She has had some mild nausea, but denies vomiting. She states this feels similar to previous episodes of pancreatitis. She rates the pain a 5/10 and states it is sharp. Nothing worsens the pain. She has not taken any medication for the pain. She sees a pancreatic specialist at [facility] in [place]. She has had CT, MRI and endoscopic ultrasound all performed within the past year. She states that at times she needs hospitalized for pancreatitis , and other times she may be treated as an outpatient. She denies urinary symptoms, changes in bowel movements or fevers. She denies chest pain or shortness of breath. She started her menstrual period today. Review of Systems A complete 10 point review of systems was reviewed with the patient with pertinent positives and negatives as per history of present illness. All else were negative. Past Medical/Surgical History Medical Problems: (1) Allergic to radiographic dye (2) Heart murmur (3) Pancreatitis Surgical Problems: (1) History of adenoidectomy (2) History of tonsillectomy Family History Breast cancer Hypertension Myocardial infarction Ovarian cancer Stroke Thyroid cancer Social History Smoking Status: Never Smoker Alcohol Use: occasionally Drug Use: none Marital Status: single Occupation Status: [employer] student Current/Historical Medications Scheduled Control Pills ( Control Pills), 1 TAB PO DAILY Ondasetron Odt (Zofran Odt), 4 MG SL Q6H Physical Exam Vital Signs Date Time Temp Pulse Resp B/P (MAP) Pulse Ox O2 Delivery O2 Flow Rate FiO2 07/23/17 16:36 70 110/71 99 07/23/17 14:44 36.7 87 18 117/73 98 Room Air Physical Exam VITALS: Vitals are noted on the nurse's note and reviewed by myself. Vital signs stable. GENERAL: This is a 21-year-old female, in no acute distress, nondiaphoretic, well-developed well-nourished. SKIN: The skin was without rashes. EARS: External auditory canals clear, tympanic membranes pearly jeffers without erythema or effusion bilaterally. EYES: Pupils equal round and reactive to light and accommodation. MOUTH: Mucous membranes moist. Tonsils are not enlarged. Pharynx without erythema or exudate. HEART: Regular rate and rhythm without murmurs gallops or rubs. LUNGS: Clear to auscultation bilaterally without wheezes, rales or rhonchi. ABDOMEN: Positive bowel sounds x 4. Soft, moderate tenderness to palpation in the epigastric region and right upper quadrant. No guarding or rebound tenderness. NEURO: Patient was alert and oriented to person place and time. Medical Decision & Procedures Laboratory Results 07/23/17 15:10 Red Blood Count 4.73, Mean Corpuscular Volume 85.4, Mean Corpuscular Hemoglobin 29.6, Mean Corpuscular Hemoglobin Concent 34.7, Mean Platelet Volume 9.6, Neutrophils (%) (Auto) 59.3, Lymphocytes (%) (Auto) 32.0, Monocytes (%) (Auto) 6.2, Eosinophils (%) (Auto) 2.1, Basophils (%) (Auto) 0.2, Neutrophils # (Auto) 3.66, Lymphocytes # (Auto) 1.97, Monocytes # (Auto) 0.38, Eosinophils # (Auto) 0.13, Basophils # (Auto) 0.01 07/23/17 15:10 Test 07/23/17 15:10 07/23/17 16:01 White Blood Count 6.16 K/uL (4.8-10.8) Red Blood Count 4.73 M/uL (4.2-5.4) Hemoglobin 14.0 g/dL (12.0-16.0) Hematocrit 40.4 % (37-47) Mean Corpuscular Volume 85.4 fL (80-100) Mean Corpuscular Hemoglobin 29.6 pg (25-34) Mean Corpuscular Hemoglobin Concent 34.7 g/dl (32-36) Platelet Count 293 K/uL (130-400) Mean Platelet Volume 9.6 fL (7.4-10.4) Neutrophils (%) (Auto) 59.3 % Lymphocytes (%) (Auto) 32.0 % Monocytes (%) (Auto) 6.2 % Eosinophils (%) (Auto) 2.1 % Basophils (%) (Auto) 0.2 % Neutrophils # (Auto) 3.66 K/uL (1.4-6.5) Lymphocytes # (Auto) 1.97 K/uL (1.2-3.4) Monocytes # (Auto) 0.38 K/uL (0.11-0.59) Eosinophils # (Auto) 0.13 K/uL (0-0.5) Basophils # (Auto) 0.01 K/uL (0-0.2) RDW Standard Deviation 41.8 fL (36.4-46.3) RDW Coefficient of Variation 13.3 % (11.5-14.5) Immature Granulocyte % (Auto) 0.2 % Immature Granulocyte # (Auto) 0.01 K/uL (0.00-0.02) Anion Gap 10.0 mmol/L (3-11) Est Creatinine Clear Calc Drug Dose 126.5 ml/min Estimated GFR () 145.2 Estimated GFR (Non- 125.3 BUN/Creatinine Ratio 12.6 (10-20) Calcium Level 8.7 mg/dl (8.5-10.1) Total Bilirubin 0.5 mg/dl (0.2-1) Direct Bilirubin 0.1 mg/dl (0-0.2) Aspartate Amino Transf (AST/SGOT) 17 U/L (15-37) Alanine Aminotransferase (ALT/SGPT) 17 U/L (12-78) Alkaline Phosphatase 38 U/L (45-117) Total Protein 8.0 gm/dl (6.4-8.2) Albumin 3.8 gm/dl (3.4-5.0) Lipase 1079 U/L (73-393) Urine Color YELLOW Urine Appearance CLEAR (CLEAR) Urine pH 5.5 (4.5-7.5) Urine Specific [place] 1.027 (1.000-1.030) Urine Protein NEG (NEG) Urine Glucose (UA) NEG (NEG) Urine Ketones NEG (NEG) Urine Occult Blood 3+ (NEG) Urine Nitrite NEG (NEG) Urine Bilirubin NEG (NEG) Urine Urobilinogen NEG (NEG) Urine Leukocyte Esterase NEG (NEG) Urine WBC (Auto) 1-5 /hpf (0-5) Urine RBC (Auto) 5-10 /hpf (0-4) Urine Hyaline Casts (Auto) 1-5 /lpf (0-5) Urine Epithelial Cells (Auto) 20-30 /lpf (0-5) Urine Bacteria (Auto) NEG (NEG) Urine Test NEG (NEG) Medications Administered Medications (Trade) Dose Ordered Sig/Kylee Route Start Time Stop Time Status Last Admin Dose Admin Sodium Chloride 1,000 ml @ 999 mls/hr Q1H1M STAT IV 07/23/17 14:59 07/23/17 15:59 DC 07/23/17 15:17 999 MLS/HR Ondansetron HCl (Zofran Inj) 4 mg NOW STAT IV 07/23/17 14:59 07/23/17 15:01 DC 07/23/17 15:17 4 MG Medical Decision Differential diagnosis includes acute pancreatitis, gastritis, cholecystitis, among others. 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 Patient states symptoms are similar to previous episodes of cholecystitis. Labs revealed no leukocytosis, anemia or elevated LFTs. Lipase was found to be elevated at 1079. Patient's baseline lipase is 300-500. Urinalysis showed 3+ blood consistent with patient's current menstrual period. Urine negative. I discussed the findings and options of care with the patient and her mother. At this time, she does appear to have acute on chronic pancreatitis, however she is tolerating p.o. and not requiring narcotics. The patient is comfortable with outpatient treatment. She was given a home pack of OxyIR to take in case of worsening pain but was instructed to try Tylenol and ibuprofen first. She was instructed to keep a clear liquid diet for the next 48 hours. She will follow-up with [facility] for a recheck in 2-3 days. She was advised to return here with worsening pain, vomiting, fever or other new/concerning symptoms. The patient's case was reviewed with Dr. Mckeon, ED attending physician, who agreed with my assessment and treatment plan. Based on the patient's presentation and work up, I feel the patient is stable for outpatient treatment. The patient was educated to return to the emergency department for any worsening of their current condition or new/concerning symptoms. She will follow up with [facility]. [place] Drug Monitoring Program Search Results: patient reviewed within database, no issues identified Medication Reconcilliation Current Medication List: was personally reviewed by me Blood Pressure Screening Patient's blood pressure: Normal blood pressure Impression Primary Impression: Acute on chronic pancreatitis Departure Information Dispostion Home / Self-Care Condition GOOD Prescriptions Ondasetron Odt (ZOFRAN ODT) 4 Mg Tab 4 MG SL Q6H for Nausea, #15 TAB Prov: Kimberley Lindquist ., MARCO 07/23/[address] [facility] (PCP) Patient Instructions My [facility] Additional Instructions You have been treated in the Emergency Department for your Abdominal Pain. Your lipase was found to be 1079. You have been given OxyIR to be used for pain control. This is a narcotic medication. You cannot drive or consume alcohol while on this medicine. This medicine should only be used for pain that cannot be controlled with over-the- counter pain medicines. You have been prescribed Zofran to be used for any nausea or vomiting. Take as prescribed. For pain control, you can use the following dyhw-yox-dxazjef medicines (if >12 yo): - Regular strength (325mg/tab) Tylenol (acetaminophen) 2 tabs every 4-6 hours as needed. Do not exceed 12 tablets in a 24 hour period. Avoid taking more than 4 grams (4000 mg) of Tylenol per day. This includes any other sources of acetaminophen you may take on a regular basis. - Regular strength (200 mg/tab) Advil (ibuprofen) 3-4 tabs every 6 hours as needed. Do not exceed a dose of 3200 mg per day. Keep a clear liquid diet for the next 48 hours, then advance diet slowly as tolerated. You may follow-up with [facility] this week for a recheck and to have your lipase rechecked. Return to the emergency department if your symptoms persist despite treatment plan outlined above or if the following symptoms occur: Worsening pain, vomiting , fevers, or other new/concerning symptoms.
[2017-07-23 15:50] LABS: ALBUMIN 3.8 gm/dl (3.4-5.0); CALCIUM 8.7 mg/dl (8.5-10.1); CREATININE 0.69 mg/dl (0.60-1.20); POTASSIUM 3.5 mmol/L (3.5-5.1)
[2017-07-23] MEDS ORDERED: ONDA4TAB10 SL (16:12)
[2017-07-23] MEDS ORDERED: OXYCODONE IR HOME PACK PO ONE (16:15)
[2017-07-23] MEDS ORDERED: ONDANSETRON HOME PACK 4MG OD TAB PO ONE (16:15)
[2017-07-23 16:36] VITALS: BP 110/71; PULSE 70; O2SAT 99
== END 2017-07-23 16:35 | disposition home or self-care (01) ==
LOC: C.EDB 14:42 → C.EDC 16:35
DX: K86.1 Other chronic pancreatitis (principal); R01.1 Cardiac murmur, unspecified; K85.90 Acute pancreatitis without necrosis or infection, unspecified; Z80.9 Family history of malignant neoplasm, unspecified; Z82.49 Family history of ischemic heart disease and other diseases of the circulatory system; Z79.3 Long term (current) use of hormonal contraceptives

== ENCOUNTER 2018-07-08 23:21 | Inpatient (IN) ==
[2018-07-08] MEDS ORDERED: METOCLOPRAMIDE HCL INJ 5 MG/ML 2 ML VIAL IV STA (23:32)
[2018-07-08] MEDS ORDERED: KETOROLAC TROMETHAMINE 15 MG/ML VIAL IV STA (23:32)
[2018-07-08] MEDS ORDERED: DiphenhydrAMINE HCL 50 MG/ML VIAL IV STA (23:32)
[2018-07-08] MEDS ORDERED: SODIUM CHLORIDE 0.9% 1000ML 1,000 ML IV ONE (23:32)
--- NOTE | 2018-07-08 23:53 | Emergency Department Note ---
History of Present Illness General Chief complaint: Abdominal Pain Stated complaint: EXTREME ABD PAIN, NAUSEA History of Present Illness Maximum Pain Intensity: 7 This 22 yo presents to the ER complaining of epigastric right upper quadrant pain Location: Epigastric right upper quadrant Quality: Aching Severity: Moderate Duration: Past 2 days Timing: Past few days Context: Pain got worse and patient came in Modifying factors: better with nothing; worse with eating Patient has history of recurrent pancreatitis. Symptoms feel similar. She she follows with a GI specialist in [facility]. Patient states tonight after swimming she had salad and pasta and pain got worse. Patient denies chest pain, dyspnea, vomiting, diarrhea, back pain, leg pain or swelling. Home Medications Home Medications Medication Instructions Recorded Confirmed Type L norgest/e.estradiol-e.estrad 1 tab PO DAILY 07/09/18 07/09/18 History [Seasonique] Allergies Allergy/AdvReac Type Severity Reaction Status Date / Time Iodinated Contrast- Oral and AdvReac Severe HIVES,SWELL Verified 07/09/18 00:10 IV Dye ING,ITCH Past Med/Surg History Medical History Pancreatitis (Chronic) Surgical History History of adenoidectomy History of tonsillectomy Social History Feels Safe at Home: Yes Smoking Status: Never smoker Review of Systems All systems reviewed & are unremarkable except as noted in HPI & below Physical Exam Vital Signs Vital Signs - 24 hr 07/08/18 23:29 07/08/18 23:52 07/08/18 23:57 Temperature 37.1 C Temperature Source Oral Sepsis Recent Fever Within 48 Hours No Sepsis Action Taken by Nursing No Action Required Pulse Rate 78 Pulse Rate [Finger] 82 Respiratory Rate 16 18 Respiratory Effort / Characteristics Non-Labored Spontaneous Respiratory Depth Normal Respiratory Pattern Regular Blood Pressure 142/81 H Blood Pressure [Left Arm] 124/79 Blood Pressure Mean 101 Blood Pressure Mean [Left Arm] 94 Blood Pressure Position Sitting Pulse Oximetry 98 95 98 Oxygen Delivery Method Room Air Room Air Room Air 07/09/18 01:38 Temperature Temperature Source Sepsis Recent Fever Within 48 Hours Sepsis Action Taken by Nursing Pulse Rate Pulse Rate [Finger] 77 Respiratory Rate 18 Respiratory Effort / Characteristics Respiratory Depth Respiratory Pattern Blood Pressure Blood Pressure [Left Arm] 116/66 Blood Pressure Mean Blood Pressure Mean [Left Arm] 82 Blood Pressure Position Pulse Oximetry 96 Oxygen Delivery Method Room Air VITALS: Vitals are noted on the nurse's note and reviewed by myself. Vital signs stable. GENERAL: Pleasant female, in no acute distress, nondiaphoretic, well-developed well-nourished. SKIN: The skin was without rashes, erythema, edema, or bruising. There is no tenting of the skin. Capillary reflex less than 2 seconds. HEAD: Normocephalic atraumatic. EARS: External auditory canals clear, tympanic membranes pearly jeffers without erythema or effusion bilaterally. EYES: Pupils equal round and reactive to light and accommodation. Conjunctivae without injection, sclerae without icterus. Extraocular movements intact. NOSE: Patent, turbinates without inflammation or discharge. MOUTH: Mucous membranes moist. Pharynx without erythema or exudate. Uvula midline. Airway patent. Tongue does not deviate. NECK: Supple without nuchal rigidity. No lymphadenopathy. No thyromegaly. Cervical spine is nontender. No JVD. HEART: Regular rate and rhythm without murmurs gallops or rubs. LUNGS: Clear to auscultation bilaterally without wheezes, rales or rhonchi. No retractions or accessory muscle use. ABDOMEN: Positive bowel sounds x 4. Normal tympanic percussion. Soft, tender to palpation epigastric region, without masses or organomegaly. Rodríguez sign n egative. No guarding or rebound tenderness. No CVA tenderness MUSCULOSKELETAL: No muscle atrophy, erythema, or edema noted. NEURO: Patient was alert and oriented to person place and time. Normal s ensation to light and sharp touch. No focal neurological deficits. Course Administered Medications Discontinued Medications Diphenhydramine HCl (Benadryl) 25 mg IV NOW STA Stop: 07/08/18 23:33 Last Admin: 07/08/18 23:53 Dose: 25 mg Documented by: [id number] Sodium Chloride (Nss 1000ml) 1,000 mls @ 999 mls/hr IV .Q1H1M ONE Stop: 07/09/18 00:32 Last Infusion: 07/09/18 00:54 Dose: 0 mls/hr Documented by: [id number] Admin: 07/08/18 23:53 Dose: 999 mls/hr Documented by: [id number] Ketorolac Tromethamine (Toradol) 10 mg IV NOW STA Stop: 07/08/18 23:33 Last Admin: 07/08/18 23:53 Dose: 10 mg Documented by: [id number] Metoclopramide HCl (Reglan) 10 mg IV NOW STA Stop: 07/08/18 23:33 Last Admin: 07/08/18 23:53 Dose: 10 mg Documented by: [id number] Medical Decision Making Medical Records Attestation: I reviewed the patient's medical records. Home Medications Current Medication List: was personally reviewed by me Laboratory Data Attestation: I reviewed the patient's lab results. Result diagrams: 07/08/18 23:40 07/08/18 23:40 Lab Results 07/08/18 07/08/18 07/08/18 Range/Units 23:40 23:40 23:40 WBC 7.62 (4.8-10.8) K/uL RBC 4.53 (4.2-5.4) M/uL Hgb 13.4 (12.0-16.0) g/dL Hct 38.5 (37-47) % MCV 85.0 (80-100) fL MCH 29.6 (25-34) pg MCHC 34.8 (32-36) g/dL RDW Std Deviation 41.2 (36.4-46.3) fL RDW Coeff of Surjit 13.3 (11.5-14.5) % Plt Count 318 (130-400) K/uL MPV 9.4 (7.4-10.4) fL Immature Gran % (Auto) 0.3 % Neut % (Auto) 60.6 % Lymph % (Auto) 31.5 % [place] % (Auto) 5.9 % Eos % (Auto) 1.6 % Baso % (Auto) 0.1 % Immature Gran # (Auto) 0.02 (0.00-0.02) K/uL Neut # (Auto) 4.62 (1.4-6.5) K/uL Lymph # (Auto) 2.40 (1.2-3.4) K/uL [place] # (Auto) 0.45 (0.11-0.59) K/uL Eos # (Auto) 0.12 (0-0.5) K/uL Baso # (Auto) 0.01 (0-0.2) K/uL Sodium 139 (136-145) mmol/L Potassium 3.9 (3.5-5.1) mmol/L Chloride 108 H (98-107) mmol/L Carbon Dioxide 23 (21-32) mmol/L Anion Gap 8.0 (3-11) BUN 11 (7-18) mg/dl Creatinine 0.68 (0.6-1.2) mg/dl Est Cr Clr Drug Dosing 127.3 ml/min Est GFR ( Amer) 144.9 Est GFR (Non-Af Amer) 125.0 BUN/Creatinine Ratio 16.2 (10-20) Glucose 90 (70-99) mg/dl Calcium 8.6 (8.5-10.1) mg/dl Total Bilirubin 0.3 (0.2-1) mg/dl AST 14 L (15-37) U/L ALT 15 (12-78) U/L Alkaline Phosphatase 51 (45-117) U/L Total Protein 7.9 (6.4-8.2) gm/dl Albumin 3.6 (3.4-5.0) gm/dl Globulin 4.3 H (2.5-4.0) gm/dl Albumin/Globulin Ratio 0.8 L (0.9-2) Lipase 884 H (73-393) U/L Urine Color Urine Appearance (Clear) Urine pH (4.5-7.5) Ur Specific [place] (1.000-1.030) Urine Protein (Negative) Urine Glucose (UA) (Negative) Urine Ketones (Negative) Urine Blood (Negative) Urine Nitrite (Negative) Urine Bilirubin (Negative) Urine Urobilinogen (Negative) Ur Leukocyte Esterase (Negative) Urine WBC (Auto) (0-5) /hpf Urine RBC (Auto) (0-4) /hpf U Hyaline Cast (Auto) (0-5) /lpf U Epithel Cells (Auto) (0-5) /lpf Urine Bacteria (Auto) (Negative) Urine Mucus (None Prsent) POC Ur Test NEG (NEG) 07/08/18 Range/Units 23:40 WBC (4.8-10.8) K/uL RBC (4.2-5.4) M/uL Hgb (12.0-16.0) g/dL Hct (37-47) % MCV (80-100) fL MCH (25-34) pg MCHC (32-36) g/dL RDW Std Deviation (36.4-46.3) fL RDW Coeff of Surjit (11.5-14.5) % Plt Count (130-400) K/uL MPV (7.4-10.4) fL Immature Gran % (Auto) % Neut % (Auto) % Lymph % (Auto) % [place] % (Auto) % Eos % (Auto) % Baso % (Auto) % Immature Gran # (Auto) (0.00-0.02) K/uL Neut # (Auto) (1.4-6.5) K/uL Lymph # (Auto) (1.2-3.4) K/uL [place] # (Auto) (0.11-0.59) K/uL Eos # (Auto) (0-0.5) K/uL Baso # (Auto) (0-0.2) K/uL Sodium (136-145) mmol/L Potassium (3.5-5.1) mmol/L Chloride (98-107) mmol/L Carbon Dioxide (21-32) mmol/L Anion Gap (3-11) BUN (7-18) mg/dl Creatinine (0.6-1.2) mg/dl Est Cr Clr Drug Dosing ml/min Est GFR ( Amer) Est GFR (Non-Af Amer) BUN/Creatinine Ratio (10-20) Glucose (70-99) mg/dl Calcium (8.5-10.1) mg/dl Total Bilirubin (0.2-1) mg/dl AST (15-37) U/L ALT (12-78) U/L Alkaline Phosphatase (45-117) U/L Total Protein (6.4-8.2) gm/dl Albumin (3.4-5.0) gm/dl Globulin (2.5-4.0) gm/dl Albumin/Globulin Ratio (0.9-2) Lipase (73-393) U/L Urine Color Yellow Urine Appearance Clear (Clear) Urine pH 5.0 (4.5-7.5) Ur Specific [place] 1.029 (1.000-1.030) Urine Protein Negative (Negative) Urine Glucose (UA) Negative (Negative) Urine Ketones Trace H (Negative) Urine Blood 1+ H (Negative) Urine Nitrite Negative (Negative) Urine Bilirubin Negative (Negative) Urine Urobilinogen Negative (Negative) Ur Leukocyte Esterase Negative (Negative) Urine WBC (Auto) 1-5 (0-5) /hpf Urine RBC (Auto) 0-4 (0-4) /hpf U Hyaline Cast (Auto) 0 (0-5) /lpf U Epithel Cells (Auto) >30 H (0-5) /lpf Urine Bacteria (Auto) Negative (Negative) Urine Mucus Present H (None Prsent) POC Ur Test (NEG) Imaging Data Attestation: I personally reviewed and interpreted this imaging study as follows: MDM Narrative Prior records/ancillary studies reviewed. Triage Nursing notes reviewed. Additional history obtained from family. The patient's history was concerning for abdominal pain. Differential diagnosis: Etiologies such as appendicitis, diverticulitis, PUD, biliary pathology, UTI, pancreatitis, obstruction, mesenteric ischemia, aortic pathology, infections, inflammatory bowel disease, renal colic, as well as others were entertained. Physical examination findings: As above. ER treatment provided: Toradol, Reglan, Benadryl, IV fluids On reassessment the patient felt better. Diagnostics interpreted by me: The labs revealed elevated lipase No leukocytosis Negative urine. Negative hCG Imaging studies: US RUQ: Slight heterogeneity and prominence of the proximal pancreas. Correlate to exclude pancreatitis. No regional fluid/collection. No visualized gallstones. No significant gallbladder wall thickening or pericholecystic fluid. Unremarkable appearance to the liver. No evidence for biliary obstruction. Mild right renal pelviectasis which could be transient. No significant hydronephrosis or calcified renal stones identified sonographically. Radiologist: Saad Goodwin MD Consultation: A consultation was placed with the hospitalist, Dr. Aceves. The case was discussed and diagnostics were reviewed. The patient was evaluated in the ER for further treatment. Exam and history seem consistent with recurrent pancreatitis. Patient's lipase was elevated. Ultrasound concerning for pericarditis. Patient is agreeable treatment plan of admission. She is placed n.p.o. and hydrated as above. She did feel much better after being medicated as above. By the evaluation outlined above emergent etiologies such as appendicitis, diverticulitis, PUD, biliary pathology, UTI,obstruction, mesenteric ischemia, aortic pathology, infections, inflammatory bowel disease, renal colic, as well as others were deemed relatively unlikely. The pt informed about the findings as listed above. All questions were answered and pleased with the treatment. Case reviewed with my attending The chart was completed utilizing [employer] Speech voice recognition software. Grammatical errors, random word insertions, pronoun errors, and incomplete sentences are an occassional consequence of this system due to software limitations, ambient noise, and hardware issues. Any formal questions or concerns about the content, text, or information contained within the body of this dictation should be directly addressed to the physician bindery assistant for clarification. Impression & Plan Pancreatitis Discharge Plan Visit Data Chief Complaint: Abdominal Pain Stated Complaint: EXTREME ABD PAIN, NAUSEA ED Provider: Ruthann Montilla ED Midlevel Provider: Jennifer Connolly Discharge Problem: Pancreatitis Patient Disposition: Being Evaluated by Hospitalist Condition: Fair Forms Stand Alone Forms: [facility] Medical Prescriptions Prescriptions: No Action L norgest/e.estradiol-e.estrad [Seasonique] 0.15 mg-30 mcg (84)/10 mcg (7) Tablets,Dose Pack,3 Month 1 tab PO DAILY RF: 0 Referrals Referrals: [place] [Primary Care Provider] - Discharge Problem: Pancreatitis Qualifiers: Chronicity: acute Pancreatitis type: unspecified pancreatitis type Acute pancreatitis complication: unspecified Qualified Code(s): K85.90 - Acute pancreatitis without necrosis or infection, unspecified
[2018-07-08 23:57] LABS: Basophils # (auto) 0.01 K/uL (0-0.2); Basophils % (auto) 0.1 %; Eosinophils # (auto) 0.12 K/uL (0-0.5); Eosinophils % (auto) 1.6 %; Hematocrit (blood only) 38.5 % (37-47); Hemoglobin 13.4 g/dL (12.0-16.0); Immature Granulocytes # (auto) 0.02 K/uL (0.00-0.02); Immature Granulocytes % (auto) 0.3 %; Lymphocytes % (auto) 31.5 %; Mean Corpuscular Hgb Conc 34.8 g/dL (32-36); Mean Platelet Volume 9.4 fL (7.4-10.4); Monocytes # (auto) 0.45 K/uL (0.11-0.59); Monocytes % (auto) 5.9 %; Neutrophils # (auto) 4.62 K/uL (1.4-6.5); Neutrophils % (auto) 60.6 %; Platelet Count 318 K/uL (130-400); RDW Coefficient of Variation 13.3 % (11.5-14.5); RDW Standard Deviation 41.2 fL (36.4-46.3); Red Blood Count 4.53 M/uL (4.2-5.4); White Blood Count 7.62 K/uL (4.8-10.8)
[2018-07-09 00:01] LABS: Appearance Urine Clear (Clear); Bacteria Urine Automated Negative (Negative); Bilirubin Urine Negative (Negative); Blood Urine 1+ (Negative); Color Urine Yellow; Epithelial Cell Urine Auto >30 /lpf (0-5); Glucose Urine UA Negative (Negative); Ketones Urine Trace (Negative); Leukocyte Esterase Urine Negative (Negative); Nitrite Urine Negative (Negative); Protein Urine Negative (Negative); Specific Gravity Urine 1.029 (1.000-1.030); Urobilinogen Urine Negative (Negative)
[2018-07-09 00:15] LABS: Albumin Level 3.6 gm/dl (3.4-5.0); BUN Creatinine Ratio 16.2 (10-20); Calcium 8.6 mg/dl (8.5-10.1); Creatinine Clr Calc Pharmacy 127.3 ml/min; Est GFR (African American) 144.9; Potassium 3.9 mmol/L (3.5-5.1)
[2018-07-09 00:18] LABS: Albumin Globulin Ratio 0.8 (0.9-2); Bilirubin,Total 0.3 mg/dl (0.2-1); Cast Urine Automated 0 /lpf (0-5); Globulin 4.3 gm/dl (2.5-4.0); Mucus Urine Present (None Prsent); RBC Urine Automated 0-4 /hpf (0-4); Total Protein 7.9 gm/dl (6.4-8.2)
--- NOTE | 2018-07-09 03:49 | History & Physical Report ---
Date of Service July 09, 2018 Assessment & Plan (1) Acute on chronic pancreatitis: 22F here for acute on chronic pancreatitis. Assessment: pancreatitis -Lipase >800. -Slight heterogeneity and prominence of the proximal pancreas suspicious for pancreatitis. No regional or fluid collection. No visualized gallstones. No significant gallbladder wall thickening. Liver unremarkable. No evidence for biliary obstruction, no significant hydronephrosis. -No other e-lyte abnormalities. -[place] score: zero. Plan: -LR @ 125 ml/hr x 3L -Toradol, morphine, zofran -NPO FEN/GI: NPO, fluids as above DVT ppx: SCDs, lovenox q24h CODE STATUS: FULL DISPO: Med/surg Other ongoing medical issues: 1. control, on OCP -- may continue own med. History of Present Illness Chief Complaint: abdominal pain Primary Care Provider: [facility] 22F here with intractable abdominal pain a/w nausea. Patient's father at bedside. PMH sig for chronic pancreatitis (since the age of 9). Follows with Dr. Adams of [facility] Digestive Disorders every 6 months, etiology thought to be due to anatomic trauma at young age. Abdominal pain began Monday, location is above umbilicus and to the right, constant, worsened by eating. Endorses having drunk 2-3 hard liquor drinks on night. Then pain began Monday evening after supper, then waned on Monday. She took PO zofran. Then this evening symptoms worsened and she presented to ED for care. Labs remarkable for lipase >800. CT abd/pelv shows pancreatic inflammation, no other abnormalities. Social: josie state senior. Denies tobacco or drugs. Endorses occasional alcohol use. Allergies Allergy/AdvReac Type Severity Reaction Status Date / Time Iodinated Contrast- Oral and AdvReac Severe HIVES,SWELL Verified 07/09/18 00:10 IV Dye ING,ITCH Home Medications Home Medications Medication Instructions Recorded Confirmed Type L norgest/e.estradiol-e.estrad 1 tab PO DAILY 07/09/18 07/09/18 History [Seasonique] Past Med/Surg History Medical History Pancreatitis (Chronic) Surgical History History of adenoidectomy History of tonsillectomy Social History current occupational status: student Feels Safe at Home: Yes Smoking Status: Never smoker Hx Alcohol Use: Yes Hx Substance Use: No Review of Systems All systems reviewed & are unremarkable except as noted in HPI & below (denies syncope, constipation, diarrhea, dysuria. ) Physical Exam Vital Signs (Past 24 Hours): Last Vital Signs Temp 37.1 C 07/08/18 23:29 Pulse 77 07/09/18 01:38 Resp 18 07/09/18 01:38 BP 116/66 07/09/18 01:38 Pulse Ox 96 07/09/18 01:38 Physical Exam: Vitals noted as above and within normal limits . GENERAL: Awake, alert to person, place, and time, nontoxic-appearing, in no distress HENT: Normocephalic, atraumatic. . Mucus membranes appear moist. EYES: Normal conjunctiva. Sclera non-icteric. EOMI. NECK: Supple. Full range of motion. No JVD RESPIRATORY: Clear to auscultation. Normal work of breathing. CARDIAC: Regular rate, normal rhythm. Extremities warm and well perfused, 2+ radial pulses bilaterally; 2+ posterior tibialis pulses bilaterally. ABDOMEN: Soft, non-distended. Moderate tenderness to palpation in epigarstrium and RUQ. No rebound or guarding. No masses. Bowel sounds are normal. LOWER EXTREMITIES: Inspection of calves reveal equal size bilaterally. They are non-tender. No edema. No discoloration. NEURO: No focal gross focal motor deficits noted. Sensation in tact. CN II-XII grossly in tact. SKIN: Rash not present. No jaundice noted. Significant lesions not present. PSYCH: Appropriate mood and affect. Cooperative. Exam as done by Sheba Walls MD, Pneumatic Press Hand. Results & Data Laboratory Results 07/08/18 07/08/18 07/08/18 Range/Units 23:40 23:40 23:40 WBC (4.8-10.8) K/uL RBC (4.2-5.4) M/uL Hgb (12.0-16.0) g/dL Hct (37-47) % MCV (80-100) fL MCH (25-34) pg MCHC (32-36) g/dL RDW Std Deviation (36.4-46.3) fL RDW Coeff of Surjit (11.5-14.5) % Plt Count (130-400) K/uL MPV (7.4-10.4) fL Immature Gran % (Auto) % Neut % (Auto) % Lymph % (Auto) % [place] % (Auto) % Eos % (Auto) % Baso % (Auto) % Immature Gran # (Auto) (0.00-0.02) K/uL Neut # (Auto) (1.4-6.5) K/uL Lymph # (Auto) (1.2-3.4) K/uL [place] # (Auto) (0.11-0.59) K/uL Eos # (Auto) (0-0.5) K/uL Baso # (Auto) (0-0.2) K/uL Sodium 139 (136-145) mmol/L Potassium 3.9 (3.5-5.1) mmol/L Chloride 108 H (98-107) mmol/L Carbon Dioxide 23 (21-32) mmol/L Anion Gap 8.0 (3-11) BUN 11 (7-18) mg/dl Creatinine 0.68 (0.6-1.2) mg/dl Est Cr Clr Drug Dosing 127.3 ml/min Est GFR ( Amer) 144.9 Est GFR (Non-Af Amer) 125.0 BUN/Creatinine Ratio 16.2 (10-20) Glucose 90 (70-99) mg/dl Calcium 8.6 (8.5-10.1) mg/dl Total Bilirubin 0.3 (0.2-1) mg/dl AST 14 L (15-37) U/L ALT 15 (12-78) U/L Alkaline Phosphatase 51 (45-117) U/L Total Protein 7.9 (6.4-8.2) gm/dl Albumin 3.6 (3.4-5.0) gm/dl Globulin 4.3 H (2.5-4.0) gm/dl Albumin/Globulin Ratio 0.8 L (0.9-2) Lipase 884 H (73-393) U/L Urine Color Yellow Urine Appearance Clear (Clear) Urine pH 5.0 (4.5-7.5) Ur Specific [place] 1.029 (1.000-1.030) Urine Protein Negative (Negative) Urine Glucose (UA) Negative (Negative) Urine Ketones Trace H (Negative) Urine Blood 1+ H (Negative) Urine Nitrite Negative (Negative) Urine Bilirubin Negative (Negative) Urine Urobilinogen Negative (Negative) Ur Leukocyte Esterase Negative (Negative) Urine WBC (Auto) 1-5 (0-5) /hpf Urine RBC (Auto) 0-4 (0-4) /hpf U Hyaline Cast (Auto) 0 (0-5) /lpf U Epithel Cells (Auto) >30 H (0-5) /lpf Urine Bacteria (Auto) Negative (Negative) Urine Mucus Present H (None Prsent) POC Ur Test NEG (NEG) 07/08/18 Range/Units 23:40 WBC 7.62 (4.8-10.8) K/uL RBC 4.53 (4.2-5.4) M/uL Hgb 13.4 (12.0-16.0) g/dL Hct 38.5 (37-47) % MCV 85.0 (80-100) fL MCH 29.6 (25-34) pg MCHC 34.8 (32-36) g/dL RDW Std Deviation 41.2 (36.4-46.3) fL RDW Coeff of Surjit 13.3 (11.5-14.5) % Plt Count 318 (130-400) K/uL MPV 9.4 (7.4-10.4) fL Immature Gran % (Auto) 0.3 % Neut % (Auto) 60.6 % Lymph % (Auto) 31.5 % [place] % (Auto) 5.9 % Eos % (Auto) 1.6 % Baso % (Auto) 0.1 % Immature Gran # (Auto) 0.02 (0.00-0.02) K/uL Neut # (Auto) 4.62 (1.4-6.5) K/uL Lymph # (Auto) 2.40 (1.2-3.4) K/uL [place] # (Auto) 0.45 (0.11-0.59) K/uL Eos # (Auto) 0.12 (0-0.5) K/uL Baso # (Auto) 0.01 (0-0.2) K/uL Sodium (136-145) mmol/L Potassium (3.5-5.1) mmol/L Chloride (98-107) mmol/L Carbon Dioxide (21-32) mmol/L Anion Gap (3-11) BUN (7-18) mg/dl Creatinine (0.6-1.2) mg/dl Est Cr Clr Drug Dosing ml/min Est GFR ( Amer) Est GFR (Non-Af Amer) BUN/Creatinine Ratio (10-20) Glucose (70-99) mg/dl Calcium (8.5-10.1) mg/dl Total Bilirubin (0.2-1) mg/dl AST (15-37) U/L ALT (12-78) U/L Alkaline Phosphatase (45-117) U/L Total Protein (6.4-8.2) gm/dl Albumin (3.4-5.0) gm/dl Globulin (2.5-4.0) gm/dl Albumin/Globulin Ratio (0.9-2) Lipase (73-393) U/L Urine Color Urine Appearance (Clear) Urine pH (4.5-7.5) Ur Specific [place] (1.000-1.030) Urine Protein (Negative) Urine Glucose (UA) (Negative) Urine Ketones (Negative) Urine Blood (Negative) Urine Nitrite (Negative) Urine Bilirubin (Negative) Urine Urobilinogen (Negative) Ur Leukocyte Esterase (Negative) Urine WBC (Auto) (0-5) /hpf Urine RBC (Auto) (0-4) /hpf U Hyaline Cast (Auto) (0-5) /lpf U Epithel Cells (Auto) (0-5) /lpf Urine Bacteria (Auto) (Negative) Urine Mucus (None Prsent) POC Ur Test (NEG) Supervising Physician Co-Signing Physician Notes Patient seen and examined, chart reviewed, case discussed with Dr. Walls and I agree with her assessment and plan as above. 22yo female with hisory of recurrent pancreatitis presenting with pancreatitis. Minimal EtOH use, no gallstones. Pancreatitis began when she was a child and fell onto her abdomen. On exam she is afebrile, HD stable, non-toxic in appearance Abd is soft, NT/ND, no masses/organomegaly/ascites Remainder of exam unremarkable Labs and images reviewed. [id number] Assessment/Plan: Pancreatitis, patient with history of the same. NPO, IVF, Pain and nausea control. Remainder of plan as above Resident Activity Tracking Resident Involvement: Resident Care Provided Care Provided: Adult [facility] Medicine
[2018-07-09] MEDS ORDERED: ONDANSETRON INJ 2 MG/ML 2 ML VIAL IV PRN (05:22)
[2018-07-09] MEDS ORDERED: DOCUSATE SODIUM 100 MG CAP PO PRN (05:22)
[2018-07-09] MEDS ORDERED: MoRPHine SULFATE 2 MG/ML CARP IV PRN (05:22)
[2018-07-09] MEDS: KETOROLAC TROMETHAMINE 15 MG/ML VIAL IV PRN ×2 (06:11→11:55)
[2018-07-09] MEDS: LACTATED RINGER'S 1,000 ML IV SCH ×3 (06:11→21:31)
--- NOTE | 2018-07-09 06:59 | Ultrasound Report ---
US gallbladder CLINICAL HISTORY: ruq pain, hx pancreatitis COMPARISON STUDY: Right upper quadrant ultrasound May 15, 2016. MRCP June 20, 2016. FINDINGS: Liver is sonographically normal. There is no biliary ductal dilatation. Common bile duct me asures 4 mm in caliber. The gallbladder is partially contracted. No gallstones are identified. There is no pericholecystic fluid. The pancreas is slightly heterogeneous. There are no peripancreatic flui d collections. The pancreas appears prominent. Appearance is similar to exam of May 15, 2016. The re is mild prominence right renal pelvis without hydronephrosis. IMPRESSION: 1. No gallstones or biliary ductal dilatation. 2. Mild heterogeneity and prominence of the pancreas, similar to exam of May 15, 2016. The findin gs could be correlated with biochemical evidence of acute pancreatitis. No peripancreatic fluid colle ction. Electronically signed by: Jong Austin M.D. 07/09/2018 6:58 AM
[2018-07-09] MEDS: ENOXAPARIN INJ 40 MG/0.4 ML SYR SQ SCH (10:15)
[2018-07-09 13:37] LABS: Albumin Level 3.2 gm/dl (3.4-5.0); BUN Creatinine Ratio 15.5 (10-20); Blood Urea Nitrogen 9 mg/dl (7-18); Calcium 8.5 mg/dl (8.5-10.1); Carbon Dioxide 20 mmol/L (21-32); Chloride 113 mmol/L (98-107); Creatinine Clr Calc Pharmacy 154.5 ml/min; Est GFR (African American) > 150.0; Est GFR (Non-African American) 133.3; Glucose 71 mg/dl (70-99); Sodium 142 mmol/L (136-145)
[2018-07-09 13:40] LABS: Alanine Aminotransferase 15 U/L (12-78); Albumin Globulin Ratio 0.8 (0.9-2); Alkaline Phosphatase 47 U/L (45-117); Aspartate Aminotransferase 16 U/L (15-37); Bilirubin,Total 0.5 mg/dl (0.2-1); Globulin 3.9 gm/dl (2.5-4.0); Total Protein 7.1 gm/dl (6.4-8.2)
[2018-07-09] MEDS: ACETAMINOPHEN 325 MG TAB PO PRN ×2 (14:23→18:30)
--- NOTE | 2018-07-09 15:49 | Hospitalist Progress Note ---
Date of Service July 09, 2018 Assessment & Plan (1) Acute on chronic pancreatitis: 22F here for acute on chronic pancreatitis. improving slowly with fluids, NPO, pain relived with narcotics clear liquids once she feels better lipase down to 700s today, LFT normal likely home in 48 hours h/o chronic pancreatitis since childhood, gets acute flare once or twice a year possible that alcohol played a role but did not drink much prior DVT ppx: SCDs, lovenox q24h CODE STATUS: FULL DISPO: Med/surg Subjective patient feeling a little better, less pain, nearly no nausea still no appetite making urine moved bowels yesterday checked labs, lipase down slightly to 700's, LFT normal updated patient's father at the bedside Review of Systems All systems reviewed & are unremarkable except as noted in HPI & below Physical Exam Vital Signs (Past 24 Hours): Last Vital Signs Temp 36.7 C 07/09/18 14:48 Pulse 95 H 07/09/18 14:48 Resp 16 07/09/18 14:48 BP 138/87 07/09/18 14:48 Pulse Ox 97 07/09/18 14:48 Constitutional: WD/WN, vitals as above Eyes: PERRL, conjunctivae normal, anicteric sclerae ENMT: external ear and nose normal, oropharynx normal Neck: trachea midline, no thyromegaly Respiratory: normal respiratory effort, lungs clear to auscultation Cardiovascular: RRR, no murmur, no edema Gastrointestinal (Abdomen): Inspection/Auscultation: abdomen normal to inspection and normal bowel sounds; abdomen not distended Percussion/Palpation: + abdomen tender (epigastric) and abdomen soft; no guarding, abdomen not rigid and no hepatosplenomegaly Musculoskeletal: no cyanosis or clubbing, extremities motor strength 5/5 Skin: no rashes, warm and dry Neurologic: patellar DTR's 2+ bilat, sensation intact Psychiatric: A+Ox3, euthymic affect Lymphatic: no cervical or axillary lymphadenopathy Results & Data Laboratory Results Laboratory Results - last 24 hr 07/08/18 07/08/18 07/08/18 23:40 23:40 23:40 WBC 7.62 RBC 4.53 Hgb 13.4 Hct 38.5 MCV 85.0 MCH 29.6 MCHC 34.8 RDW Std Deviation 41.2 RDW Coeff of Surjit 13.3 Plt Count 318 MPV 9.4 Immature Gran % (Auto) 0.3 Neut % (Auto) 60.6 Lymph % (Auto) 31.5 [place] % (Auto) 5.9 Eos % (Auto) 1.6 Baso % (Auto) 0.1 Immature Gran # (Auto) 0.02 Neut # (Auto) 4.62 Lymph # (Auto) 2.40 [place] # (Auto) 0.45 Eos # (Auto) 0.12 Baso # (Auto) 0.01 Sodium 139 Potassium 3.9 Chloride 108 H Carbon Dioxide 23 Anion Gap 8.0 BUN 11 Creatinine 0.68 Est Cr Clr Drug Dosing 127.3 Est GFR ( Amer) 144.9 Est GFR (Non-Af Amer) 125.0 BUN/Creatinine Ratio 16.2 Glucose 90 Calcium 8.6 Total Bilirubin 0.3 AST 14 L ALT 15 Alkaline Phosphatase 51 Total Protein 7.9 Albumin 3.6 Globulin 4.3 H Albumin/Globulin Ratio 0.8 L Lipase 884 H Urine Color Urine Appearance Urine pH Ur Specific [place] Urine Protein Urine Glucose (UA) Urine Ketones Urine Blood Urine Nitrite Urine Bilirubin Urine Urobilinogen Ur Leukocyte Esterase Urine WBC (Auto) Urine RBC (Auto) U Hyaline Cast (Auto) U Epithel Cells (Auto) Urine Bacteria (Auto) Urine Mucus POC Ur Test NEG 07/08/18 07/09/18 23:40 13:03 WBC RBC Hgb Hct MCV MCH MCHC RDW Std Deviation RDW Coeff of Surjit Plt Count MPV Immature Gran % (Auto) Neut % (Auto) Lymph % (Auto) [place] % (Auto) Eos % (Auto) Baso % (Auto) Immature Gran # (Auto) Neut # (Auto) Lymph # (Auto) [place] # (Auto) Eos # (Auto) Baso # (Auto) Sodium 142 Potassium 4.0 Chloride 113 H Carbon Dioxide 20 L Anion Gap 9.0 BUN 9 Creatinine 0.56 L Est Cr Clr Drug Dosing 154.5 Est GFR ( Amer) > 150.0 Est GFR (Non-Af Amer) 133.3 BUN/Creatinine Ratio 15.5 Glucose 71 Calcium 8.5 Total Bilirubin 0.5 AST 16 ALT 15 Alkaline Phosphatase 47 Total Protein 7.1 Albumin 3.2 L Globulin 3.9 Albumin/Globulin Ratio 0.8 L Lipase 712 H Urine Color Yellow Urine Appearance Clear Urine pH 5.0 Ur Specific [place] 1.029 Urine Protein Negative Urine Glucose (UA) Negative Urine Ketones Trace H Urine Blood 1+ H Urine Nitrite Negative Urine Bilirubin Negative Urine Urobilinogen Negative Ur Leukocyte Esterase Negative Urine WBC (Auto) 1-5 Urine RBC (Auto) 0-4 U Hyaline Cast (Auto) 0 U Epithel Cells (Auto) >30 H Urine Bacteria (Auto) Negative Urine Mucus Present H POC Ur Test Medications Administered Current Inpatient Medications Acetaminophen (Tylenol) 650 mg PO Q4H PRN PRN Reason: Pain Stop: 08/08/18 14:00 Last Admin: 07/09/18 14:23 Dose: 650 mg Documented by: Docusate Sodium (Colace) 100 mg PO BID PRN PRN Reason: Constipation Stop: 08/08/18 05:21 Enoxaparin Sodium (Lovenox) 40 mg SQ Q24H [facility] Stop: 08/08/18 08:59 Last Admin: 07/09/18 10:15 Dose: Not Given Documented by: Lactated Ringer's (Lr) 1,000 mls @ 125 mls/hr IV .Q8H [facility] Stop: 07/10/18 05:29 Last Admin: 07/09/18 13:32 Dose: 125 mls/hr Documented by: Ketorolac Tromethamine (Toradol) 15 mg IV Q6H PRN PRN Reason: Pain Stop: 07/14/18 05:21 Last Admin: 07/09/18 11:55 Dose: 15 mg Documented by: Miscellaneous (Order Awaiting Action) 1 ea N/A QS [facility] Stop: 08/08/18 07:59 Last Admin: 07/09/18 10:16 Dose: Not Given Documented by: Morphine Sulfate (Morphine Sulfate) 1 mg IV Q2H PRN PRN Reason: Pain Stop: 07/23/18 05:21 Ondansetron HCl (Zofran) 4 mg IV Q6H PRN PRN Reason: Nausea Stop: 08/08/18 05:21
[2018-07-10 00:34] VITALS: TEMP 98.4
[2018-07-10 07:29] VITALS: BP 119/74; PULSE 106; O2SAT 97
[2018-07-10 07:47] LABS: Basophils # (auto) 0.01 K/uL (0-0.2); Basophils % (auto) 0.2 %; Eosinophils # (auto) 0.12 K/uL (0-0.5); Eosinophils % (auto) 1.8 %; Hematocrit (blood only) 38.5 % (37-47); Hemoglobin 13.3 g/dL (12.0-16.0); Immature Granulocytes # (auto) 0.01 K/uL (0.00-0.02); Immature Granulocytes % (auto) 0.2 %; Lymphocytes # (auto) 2.05 K/uL (1.2-3.4); Lymphocytes % (auto) 31.2 %; Mean Corpuscular Hgb Conc 34.5 g/dL (32-36); Mean Corpuscular Volume 85.6 fL (80-100); Mean Platelet Volume 9.7 fL (7.4-10.4); Monocytes # (auto) 0.32 K/uL (0.11-0.59); Monocytes % (auto) 4.9 %; Neutrophils # (auto) 4.06 K/uL (1.4-6.5); Neutrophils % (auto) 61.7 %; Platelet Count 280 K/uL (130-400); RDW Coefficient of Variation 13.2 % (11.5-14.5); RDW Standard Deviation 41.3 fL (36.4-46.3); White Blood Count 6.57 K/uL (4.8-10.8)
[2018-07-10 08:26] LABS: Alanine Aminotransferase 15 U/L (12-78); Albumin Globulin Ratio 0.8 (0.9-2); Albumin Level 3.2 gm/dl (3.4-5.0); Alkaline Phosphatase 47 U/L (45-117); Aspartate Aminotransferase 17 U/L (15-37); BUN Creatinine Ratio 12.8 (10-20); Bilirubin,Total 0.6 mg/dl (0.2-1); Blood Urea Nitrogen 6 mg/dl (7-18); Calcium 8.3 mg/dl (8.5-10.1); Carbon Dioxide 16 mmol/L (21-32); Chloride 110 mmol/L (98-107); Creatinine Clr Calc Pharmacy 192.3 ml/min; Est GFR (African American) > 150.0; Est GFR (Non-African American) 143.2; Globulin 3.9 gm/dl (2.5-4.0); Glucose 55 mg/dl (70-99); Potassium 3.9 mmol/L (3.5-5.1); Sodium 137 mmol/L (136-145); Total Protein 7.1 gm/dl (6.4-8.2)
[2018-07-10] MEDS: ACETAMINOPHEN 325 MG TAB PO PRN (09:06)
[2018-07-10] MEDS: ENOXAPARIN INJ 40 MG/0.4 ML SYR SQ SCH (09:07)
--- NOTE | 2018-07-10 15:43 | Discharge Summary ---
Date of Service July 10, 2018 Admission HPI Per Admitting Provider 22F here with intractable abdominal pain a/w nausea. Patient's father at bedside. PMH sig for chronic pancreatitis (since the age of 9). Follows with Dr. Adams of [facility] Digestive Disorders every 6 months, etiology thought to be due to anatomic trauma at young age. Abdominal pain began Monday, location is above umbilicus and to the right, constant, worsened by eating. Endorses having drunk 2-3 hard liquor drinks on night. Then pain began Monday evening after supper, then waned on Monday. She took PO zofran. Then this evening symptoms worsened and she presented to ED for care. Labs remarkable for lipase >800. CT abd/pelv shows pancreatic inflammation, no other abnormalities. Social: josie state senior. Denies tobacco or drugs. Endorses occasional alcohol use. Admission Exam Per Admitting Provider Vitals noted as above and within normal limits . GENERAL: Awake, alert to person, place, and time, nontoxic-appearing, in no distress HENT: Normocephalic, atraumatic. . Mucus membranes appear moist. EYES: Normal conjunctiva. Sclera non-icteric. EOMI. NECK: Supple. Full range of motion. No JVD RESPIRATORY: Clear to auscultation. Normal work of breathing. CARDIAC: Regular rate, normal rhythm. Extremities warm and well perfused, 2+ radial pulses bilaterally; 2+ posterior tibialis pulses bilaterally. ABDOMEN: Soft, non-distended. Moderate tenderness to palpation in epigarstrium and RUQ. No rebound or guarding. No masses. Bowel sounds are normal. LOWER EXTREMITIES: Inspection of calves reveal equal size bilaterally. They are non-tender. No edema. No discoloration. NEURO: No focal gross focal motor deficits noted. Sensation in tact. CN II-XII grossly in tact. SKIN: Rash not present. No jaundice noted. Significant lesions not present. PSYCH: Appropriate mood and affect. Cooperative. Exam as done by Sheba Walls MD, Cardiovascular Physician Assistant. Principal Diagnosis Acute pancreatitis Discharge Exam Constitutional WD/WN, vitals as above Eyes PERRL, conjunctivae normal, anicteric sclerae ENMT external ear and nose normal, oropharynx normal Neck trachea midline, no thyromegaly Respiratory normal respiratory effort, lungs clear to auscultation Cardiovascular RRR, no murmur, no edema Gastrointestinal (Abdomen) Inspection/Auscultation: abdomen normal to inspection and normal bowel sounds; abdomen not distended Percussion/Palpation: abdomen soft; abdomen nontender, no guarding, abdomen not rigid and no hepatosplenomegaly Musculoskeletal no cyanosis or clubbing, extremities motor strength 5/5 Skin no rashes, warm and dry Neurologic patellar DTR's 2+ bilat, sensation intact Psychiatric A+Ox3, euthymic affect Lymphatic no cervical or axillary lymphadenopathy Discharge Data Allergies Allergy/AdvReac Type Severity Reaction Status Date / Time Iodinated Contrast- Oral and AdvReac Severe HIVES,SWELL Verified 07/09/18 00:10 IV Dye ING,ITCH Consultations 07/09/18 01:50 ED Decision to Admit Stat Ordered Studies 07/08/18 23:53 US gallbladder Urgent Hospital Course (1) Acute on chronic pancreatitis: 22F here for acute on chronic pancreatitis. improved quickly with IV fluids and NPO, pain relived with narcotics clear liquids on 07/10 in the morning, wanted more to eat tolerated low fiber diet on 07/10 at lunch, no pain, no nausea lipase down to 600s which is chronic LFT normal h/o chronic pancreatitis since childhood, gets acute flare once or twice a year possible that alcohol played a role but did not drink much prior patient and her family will call her GI doctor with [facility] after discharge planning on follow up with them in the next few weeks to months Total Time Total Time Spent Total Time Spent (In Minutes): 40 minutes Total Time Includes: Examination of the Patient, Discharge Planning and Other (visited with patient twice, long discussion with her and her mother) Discharge Plan Discharge Items Patient Disposition: Home - Self-Care Reason For Visit: PANCREATITIS Discharge Diagnosis: Acute pancreatitis Condition: Fair Discharge Goals: Decrease discomfort and Improve function Activity: Resume your previous activity Non-emergency contact: Primary Care Provider and [employer] Technician Call non-emergency contact if: you have any medication questions, your symptoms worsen and your pain is not controlled Follow-up/Referrals: [place],[facility] [Primary Care Provider] - Diet: Regular Addtl Provider Instructions: Acute pancreatitis: nearly resolved with improved pain and increased appetite recommend that you stay well hydrated and advance diet slowly would avoid alcohol for at least two weeks to allow pancreas to recover recommend contacting marketing designer at [facility] for recommendations, follow up Prescriptions: Continued L norgest/e.estradiol-e.estrad [Seasonique] 0.15 mg-30 mcg (84)/10 mcg (7) Tablets,Dose Pack,3 Month 1 tab PO DAILY RF: 0 Stand-Alone Forms: My [facility], Work/School Release (Inpt) Discharge Orders: Discharge Order (Routine); Ordered 07/10/18 Ordered By: Moises Beaulieu Admission Data Admit Date/Time: 07/09/18 03:51 Attending Provider: Moises Beaulieu Admit Provider: Estephania Aceves Primary Care Provider: [facility] Other Providers: Estephania Aceves Service: Medical Other Interventions: Discharge Summary Assessment (RN) Last Done: 07/10/18 15:28 DC Date/Time DO NOT enter until pt leaves facility: 07/10/18 17:11
== END 2018-07-10 17:11 | disposition home or self-care (01) | DRG 440 ==
LOC: ED 23:21 → SUATTDRO 07-09 03:51 → 4E 07-09 03:51